=== PATIENT | male | born 1965 | race Caucasian/White ===

== ENCOUNTER 2017-09-03 03:23 | Inpatient (IN) | payer OTHER ==
[~2017-09-03] VITALS: Ht 182.9 cm; Wt 103.9 kg
[~2017-09-03 03:23] MED LIST: GLUCOPHAGE1000 M1 PO; LIPITOR20 M2 PO
--- NOTE | 2017-09-03 17:02 | Operative Report ---
Operative/Inv Procedure Report Surgery Date: 09/03/17 Name of Procedure: 1. Robotic low anterior resection with colon to low rectum anastomosis 2. Rigid sigmoidoscopy for the evaluation of anastomotic integrity Pre-Operative Diagnosis: Large adenoma of rectosigmoid not amenable to endoscopic removal Post-Operative Diagnosis: Large adenoma of upper to mid rectum Estimated Blood Loss: 50ml to 100ml Surgeon/Wellness Spa Manager: Jeremy Howe Jr., DO Anesthesia: general endotracheal tube, block Monitors: Per routine IV Fluids: 2,250 ml crystalloid Implants: None Urine Output: 250 mL Drains: Britt catheter Specimens: Rectosigmoid Complications: None Condition: Good Operative Indication: This is a 52-year-old gentleman who recently had a screening colonoscopy. He as found to have a large villous polyp described in the rectosigmoid. This was not amenable to endoscopic removal. Biopsies were performed which demonstrated adenoma and no evidence of invasive cancer. He was referred for surgical consultation and scheduled for low anterior resection Operative/Procedure Note Note: On the day before his operation the patient did a bowel prep at home including oral laxatives and oral antibiotics. On the morning of his procedure he drinks 12 ounces apple juice prior coming to the [facility]. In the holding area he was given ERAS premedications. He was taken to the operating room placed in supine position on the operating table . He was given IV antibiotics . He underwent induction of general anesthesia placement of endotracheal tube placement of Britt catheter . Next he was converted to lithotomy position and he was secured to the bed with both arms tucked . His abdomen was prepped and draped in usual fashion and then we gained access to the abdominal cavity using a Veress needle technique . The Veress needle was inserted in the midclavicular line subcostal on the left . The abdomen was insufflated to 15 mmHg . The robotic ports were placed on the line drawn between the xiphoid process in the right lower quadrant . #12 and 3 ports were 8 mm #4 port was a 12 mm . This placed the right lower quadrant 8 mm peer support . The number 3 port was placed blindly and all others were placed under direct visualization of the scope. The patient was placed in Trendelenburg right side down , the small bowel was swept out of the pelvis and the robot was docked. Began with medical to lateral dissection incising the peritoneum at the level of sacral promontory to the right of the rectum . I developed the avascular window here and continue to follow this laterally until I identified the important anatomic structures in the left retro-perineum including: The iliac vessels, the left ureter in the gonadal blood vessels. After dissecting the nasal colon off of the structures the pedicle of the inferior mesenteric artery was identified and then skeletonized. The vessel were then ligated and divided with a robotic 45 mm vascular stapler leaving the left colic and at least one tic of the sigmoid vessels. Next I took down the white line of Toldt's starting at the pelvic inlet and going retrograde back until I reached the proximal ascending colon. The splenic flexure was not taken down. I deserosalized a small part of the colon so this was oversewn with 2-0 Vicryl sutures in a Lembert fashion. This area of the silk was insufflation was probably less than 5 mm. Next I focused on the pelvic dissection. I followed the posterior avascular plane of the rectum down to the very low portion of the rectum. Of note the tattoo was below the peritoneal reflection and I could only see staining of the tattoo in the anterior portion of the rectum at the level of the peritoneal reflection. After mobilizing the mesorectum all the way down to the very low rectum I came around dividing the lateral pedicles first to the right side of the colon than the left side of the colon. I had to developed the anterior space between rectum and the general to urinary structures. Once I felt I was comfortably below the tattoo prepare for stapling. An anterior to posterior stapling was performed. Multiple firings of 45 mm green loaded stapler were required. Once the bowel was completely transected, cut and was grasped with a laparoscopic grasper and we letdown the pneumoperitoneum. A 4 cm Pfannenstiel incision was made in the suprapubic position. A wound protector was placed through this. The bowel was extracted through this incision. I chose my proximal site of transection. Cleared the mesentery here partly with electrocautery and ligating larger bundles of tissue with heavy Vicryl ties. The patient had a very large caliber colon. A large bowel clamp was placed across the bowel at the proposed site of transection. I then divided the bowel sharply and grasped the open ends with the Allis clamp. A handsewn pursestring was performed with 2-0 Prolene suture. It had to be reinforced with a second 2-0 Vicryl suture. A 31 EEA stapler was chosen for the anastomosis and the anvil of the stapler was placed into the lumen of the colon. The pursestring was tied snugly around the PEG of the anvil. The bowel was reduced back into the abdominal cavity. The abdominal wall at the Pfannenstiel incision was closed in 2 layers. The perineum was closed with interrupted 2-0 Vicryl suture in a figure of 8 fashion. The fascia was closed with running 0 non-looped Maxon. I then went to the back field open the specimen the polyp was within the specimen and had excellent distal margin. I changed and rescoped into the field. Placed the patient back in Trendelenburg irrigated out any residual blood and fluid in the pelvis. The rectal stump was then tested for air leaks. Sterile water was placed into the pelvis and a rigid sigmoidoscopy was done from below. There was no evidence of air leak. The EEA stapler was passed transanally and then the spike was advanced when the stapler was in the optimal position. When the PEG immersed to the wall of the rectum it was connected to the anvil. We then made sure the bowel was not twisted. The stapler was completely closed and allowed to settle for 30 seconds. The stapler was then armed and fired. The stapler was opened and retrieved. I had to intact very healthy stapler donuts on the stapling device. Once again the pelvis was filled with sterile saline and then the bowel was occluded proximal to the anastomosis. A rigid sigmoidoscopy was performed to easily pass the scope through the anastomosis and there was no leaking of air at the anastomosis. The fluid was aspirated out of the pelvis which one last look around the abdominal cavity. In the stasis appeared good. The ports removed under direct visualization of the laparoscope. The subcutaneous at the level of the Pfannenstiel incision was copiously irrigated with sterile saline. This incision was closed with skin lee. The other ports were closed with subcuticular 4-0 Monocryl and then skin glue. At this point the patient was converted back to supine position, he was exiting operating room, he tolerated the procedure well, and he was taken to the recovery in good condition At the end this operational needle sponges and measurements were accounted for. Findings: Very large villous lesion to mid rectum Colon to low rectal anastomosis Excellent margin on the lesion Discharge Disposition: Same Day Admissions CC: Chris HOUSE,Dulce
--- NOTE | 2017-09-03 17:05 | Admission Core Measures ---
Acute Coronary Syndrome (CM) ACS Core Measures Acute Coronary Syndrome Diagnosis No Congestive Heart Failure (NEW) CHF Core Measures Congestive Heart Failure Diagnosis No Cerebrovascular Accident (NEW) CVA Core Measures CVA/TIA Diagnosis No Venous Thromboembolism VTE Core Ebenezer (View Protocol) VTE Risk Factors Surgery No Mechanical VTE Prophylaxis d/t N/A MechProphylax Ordered No VTE Pharm Prophylaxis d/t NA PharmProphylax ordered Problem List As ranked by this Provider includes Assessment & Plan 1. Adenoma of rectum HOME MEDS Home Med List Atorvastatin Calcium (Lipitor) 20 MG TABLET 1 TAB PO DAILY CHOL (Reported) Metformin HCl (Glucophage) 1,000 MG TABLET 1 TAB PO BID DIABETES (Reported)
--- NOTE | 2017-09-03 17:09 | Surg Short-stay <48hrs Dis Sum ---
Visit Information Visit Dates Admission Date: 09/03/17 Discharge Date: 09/17/17 Surgical Short Stay DC Summary Admission Diagnosis: Large adenoma of upper to mid rectum Final Diagnosis: Same s/p robotic low anterior resection with colon to low rectum anastomosis and rigid sigmoidoscopy for the evaluation of anastomotic integrity Post-op anastomotic leak s/p exploratory laparotomy with washout of abdominal cavity, diverting loop ileostomy Procedure(s): Surgery Date: 09/03/17 Name of Procedure: 1. Robotic low anterior resection with colon to low rectum anastomosis 2. Rigid sigmoidoscopy for the evaluation of anastomotic integrity Surgery Date: 09/05/17 Name of Procedure: 1. Exploratory laparotomy with washout of abdominal cavity 2. Diverting loop ileostomy 3. Rigid sigmoidoscopy Summary/Significant Findings: Patient presented for an elective robotic low anterior resection with colon to low rectum anastomosis and rigid sigmoidoscopy on 09/03/[address] Howe for a large adenoma of the upper to mid rectum. ERAS protocol initiated preop and continued postop. On postop day 2, he developed worsening pain and signs of peritonitis and was taken back to the OR by Dr. Howe where he was found to have an anastomic leak. He underwent an exploratory laparotomy with washout of abdominal cavity, diverting loop ileostomy and rigid sigmoidoscopy. Drains were left in place and antibiotics were continued post-operatively. A wound vac was placed to the midline for wound contamination/closure with changes done three times a week (Wednesday/Wednesday/Wednesday). Diet was slowly advanced with return of bowel function. Imodium was started for diarrhea. Due to worsening leukocytosis, CT of the chest and abdomen/pelvis was obtained, which revealed atelectasis and a pleural effusion, and a u/s guided thoracentesis was done by IR. CT A/P revealed a justo-splenic collection for which he underwent an abdominal aspiration and IR percutanous drainage with final cultures that grew ecoli. He was started on IV antibiotics and transitioned to oral cipro and flagyl prior to discharge. VNA services were arranged for continued ileostomy care, LUCIANO drain care, and wound vac therapy with dressing changes three times a week. Condition at Discharge: Stable Discharge Disposition: home health services Discharge instructions provided to patient/family: Yes Post discharge follow-up plan: Follow up in [address] Howe Home health/vna care for drains, ileostomy care, and wound vac therapy M/W/F Copies to: James HOUSE,August Ramirez MD,August
[2017-09-03 19:06] VITALS: BP 148/74
--- NOTE | 2017-09-03 21:32 | PN- General Surgery ---
Subjective Subjective: POSTOP CHECK Patient tolerated his procedure well and was transferred to the general medical floor in stable condition. He admits to some discomfort, with minimal relief from Ultram and acetaminophen. Overall feeling very tired at the moment. Tolerating small sips of clears. No nausea or vomiting. No flatus as of yet. Avery catheter remains in place. Otherwise denies headache, dizziness, chest pain, shortness of breath. Objective Vital Signs and I&Os Vital Signs Date Time Temp Pulse Resp B/P B/P Pulse O2 O2 Flow FiO2 Mean Ox Delivery Rate 09/04 2023 Room Air 09/03 1912 96 Room Air Room Air 09/03 1905 97.6 80 18 148/74 99 Room Air Physical Exam: Gen.: Patient is awake and alert. No acute distress. Cardiac: Regular Pulmonary: Lungs are clear to auscultation bilaterally. Inspiratory effort somewhat limited by pain. Abdomen: Soft and moderately distended. The trocar incision sites are clean and intact with surgical glue in place. Dressing over the extraction site contains of small 2 cm area of bloody drainage, but it is not leaking. Mild justo- incisional tenderness, within expected limits. Hypoactive BS noted. Assessment/Plan Assessment/Plan Patient is a 52-year-old male, now POD #0 s/p Robotic low anterior resection with colon to low rectum anastomosis. Pt remains stable from a surgical standpoint. Plan: -ERAS pathway initiated. -Clear liquid diet tonight. If tolerated, will progress to fulls in AM. Recommend gum chewing. -Neurontin, tylenol, and ultram for pain. Pain is reasonably managed with this, but on occassion pain levels are somewhat high. Oxycodone 5 mg will be added q6 as needed. Pt is encouraged to limit use. -Entereg bid until return of bowel function. -DC avery early in AM. -Ambulate in AM, leg exercises, and incentive spirometer. -Heparin SC and alps for DVT ppx. -Ancef and Flagyl x 2 doses. -CBC and lytes in AM. Core Measures Venous Thromboembolism VTE Risk Factors Surgery No Mechanical VTE Prophylaxis d/t N/A MechProphylax Ordered No VTE Pharm Prophylaxis d/t NA PharmProphylax ordered
[2017-09-03 23:09] VITALS: BP 180/62
[2017-09-04 03:32] VITALS: BP 156/82
[2017-09-04 07:59] VITALS: BP 132/74
--- NOTE | 2017-09-04 08:28 | PN- Student ---
Jaxson Peres 09/04/17812: Subjective Subjective: PATIERRNT RECOVERING WELL POST-OP, ONE EPISODE OF EMESIS EARLY THIS AM, BUT HAS TOLERATED PO CLEARS SINCE THEN WITHOUT N/V. REPORTS PAIN MODERATELY CONTROLLED, REQUESTED OXYCODONE THIS AM FOR BREAKTHROUGH PAIN. PULIDO REMOVED THIS AM AND HAS VOIDED. HAS NOT BEEN OOB SINCE PROCEDURE. NO BM/FLATUS. PATIENT DENIES CHEST PAIN, SOB, HEADACHE, DIZZINESS, FEVER, AND CHILLS. Objective Objective: Vital Signs Date Time Temp Pulse Resp B/P B/P Pulse O2 O2 Flow FiO2 Mean Ox Delivery Rate 09/04 075 97.9 101 20 132/74 94 09/04 0332 99.3 102 20 156/82 93 09/03 2309 85 18 180/62 91 Room Air 09/04 2023 Room Air 09/03 191 96 Room Air Room Air 09/03 190 97.6 80 18 148/74 99 Room Air Intake & Output 09/04 1600 09/04 0800 09/04 0000 Intake Total 850 270 Output Total 2100 950 Balance -1250 -680 Intake, IV 850 150 Intake, Oral 120 Output, 100 Emesis Output, Urine 2000 950 Patient 230 lb Weight Weight Reported by Patient Measurement Method GENERAL: RESTING COMFORTABLY IN BED, NAD, ACTIVELY PARTICIPATED IN EXAM ABDOMEN: MODERATELY DISTENDED, INCISIONS AND DRESSINGS C/D/I WITHOUT SURROUNDING ERYTHEMA. NORMOACTIVE BOWEL SOUNDS THROUGHOUT ABDOMEN, MODERATE JOSE ARMANDO-INCISIONAL AND JOSE ARMANDO-UMBILICAL TENDERNESS, TYMPANIC IN ALL QUADRANTS CARDIAC: TACHYCARDIC, REGULAR RHYTHM, NO MRG PULM: CTAB, NO ACCESSORY MUSCLE USAGE LOWER EXTREMITIES: NO EDEMA OR ERYTHEMA, PNEUMATIC COMPRESSION DEVICES IN PLACE, NONTENDER, GROSS MOTOR AND SENSORY FUNCTION INTACT, 2+ DP PULSES B/L Results Results: Assessment/Plan Assessment: 52 Y/O MALE, PMH OF DM AND HLD, POD#1 S/P ROBOTIC LAR. PROGRESSING WELL POST-OP. PAIN MODERATELY CONTROLLED WITH OCCASIONAL BREAKTHROUGH PAIN REQUIRING OXYCODONE. AWAITING RETURN OF BOWEL FUNCTION, EPISODE OF EMESIS EARLY THIS A.M WITHOUT BM/FLATUS MAY REQUIRE SLOWER DIET PROGRESSION. SLIGHTLY HYPERTENSIVE AND TACHYCARDIC SINCE PROCEDURE LIKELY DUE TO PAIN. Plan: DIET: CLEARS CONTINUE CURRENT PAIN MANAGEMENT, OXYCODONE FOR BREAKTHROUGH PAIN PPX: SQH, PNEUMATIC COMPRESSION DEVICES, OOB OOB TOLERATED ENTEREG FOR RETURN OF BOWEL FUNCTION CONTINUE HOME MEDICATIONS F/U AM LABS PULIDO REMOVED, MONITOR URINE OUTPUT Misty Bryan 09/04/17 0907: Assessment/Plan Plan: Agree with student note above. Pt also seen by Dr. Hwoe. Continue clears due to nausea/vomiting this morning. Cont IVF for now. Will obtain gum for chewing later today.
--- NOTE | 2017-09-04 08:49 | PN- General Surgery ---
Surgical Brief Attending Note Brief Attending Note: Patient with borderline tachycardia this morning Abdominal exam is distended and tympanitic To not advance diet Continue IV fluids Follow-up a.m. labs
[2017-09-04 09:04] LABS: ABSOLUTE BASOPHIL COUNT 0 /CUMM (0.0-0.2); ABSOLUTE EOSINOPHIL COUNT 0 /CUMM (0.0-0.7); ABSOLUTE GRANULOCYTE CT 12.6 /CUMM (1.4-6.5); ABSOLUTE MONOCYTE COUNT 1.5 /CUMM (0.10-0.60); BASOPHIL % 0.1 % (0.0-2.0); EOSINOPHIL % 0 % (0-5); GRANULOCYTE % 83.4 % (42.2-75.2); HEMATOCRIT 39.4 % (42-52); MEAN CORPUSCULAR HGB 30.6 PG (27.0-31.0); MEAN CORPUSCULAR HGB CONC 33.5 G/DL (33.0-37.0); MEAN CORPUSCULAR VOLUME 91.3 FL (80.0-94.0); MEAN PLATELET VOLUME 9.7 FL (7.4-10.4); PLATELET COUNT 215 /CUMM (130-400); RBC DISTRIBUTION WIDTH 13.7 % (11.5-14.5); RED BLOOD CELL CT 4.32 /CUMM (4.70-6.10)
[2017-09-04 12:08] VITALS: BP 128/80
[2017-09-04 13:12] LABS: WHITE BLOOD CELL COUNT 15.1 /CUMM (4.8-10.8)
[2017-09-04 16:33] VITALS: BP 140/80
[2017-09-04 20:30] VITALS: BP 130/76
[2017-09-04 23:55] VITALS: BP 148/82
[2017-09-05 04:14] VITALS: BP 162/84
[2017-09-05 08:16] LABS: ABSOLUTE BASOPHIL COUNT 0 /CUMM (0.0-0.2); ABSOLUTE EOSINOPHIL COUNT 0 /CUMM (0.0-0.7); ABSOLUTE GRANULOCYTE CT 11.3 /CUMM (1.4-6.5); ABSOLUTE LYMPH COUNT 0.7 /CUMM (1.2-3.4); ABSOLUTE MONOCYTE COUNT 1.2 /CUMM (0.10-0.60); BASOPHIL % 0.1 % (0.0-2.0); EOSINOPHIL % 0 % (0-5); GRANULOCYTE % 85.9 % (42.2-75.2); HEMATOCRIT 43.2 % (42-52); MEAN CORPUSCULAR HGB 30.3 PG (27.0-31.0); MEAN CORPUSCULAR HGB CONC 32.7 G/DL (33.0-37.0); MEAN CORPUSCULAR VOLUME 92.7 FL (80.0-94.0); MEAN PLATELET VOLUME 9.9 FL (7.4-10.4); PLATELET COUNT 241 /CUMM (130-400); RBC DISTRIBUTION WIDTH 14.4 % (11.5-14.5); RED BLOOD CELL CT 4.66 /CUMM (4.70-6.10)
[2017-09-05 08:25] VITALS: BP 142/80
--- NOTE | 2017-09-05 08:44 | PN- General Surgery ---
Subjective Subjective: PT IN BED WITH C/O ABDOMINAL PAIN, SAYS IT FEELS LIKE A MUSCULAR PAIN. NO NAUSEA. PASSING SMALL AMOUNT OF FLATUS AND WATERY STOOL THIS MORNING. WAS AMBULATING YESTERDAY. TOLERATED CLEARS. VOIDING DENIES FEVER/CP/SOB/PEREZ Objective Vital Signs and I&Os Vital Signs Date Time Temp Pulse Resp B/P B/P Pulse O2 O2 Flow FiO2 Mean Ox Delivery Rate 09/05 824 98.8 94 20 142/80 95 Room Air 09/05 0414 99.0 102 20 162/84 92 09/04 2355 98.1 99 20 148/82 93 09/04 2030 98.2 86 18 130/76 91 Room Air 09/04 1633 98.0 78 18 140/80 95 Room Air 09/04 1208 97.2 78 20 128/80 95 Intake & Output 09/05 1600 09/05 0800 09/05 0000 09/04 1600 09/04 0809/04 0000 Intake Total 340 1050 1300 850 270 Output Total 445 961 6709 2100 950 Balance -535 450 -200 -1250 -680 Intake, IV 100 100 450 850 150 Intake, Oral 240 950 850 120 Number 1 0 Bowel Movements Output, 100 Emesis Output, Urine 326 458 8995 2000 950 Patient 230 lb Weight Weight Reported by Patient Measurement Method Physical Exam: GEN- APPEARS IN PAIN IN BED RESP- CLEAR CARDIAC-RRR ABD- DISTENDED, +BS, TENDER THROUGHOUT, NO REBOUND OR GAURDING. INCISIONS CLEAN AND DRY. NO SIGNS OF INFECTION EXT- NO EDEMA, NO CALF TENDERNESS Current Medications: Current Medications Sig/Milton Start time Last Medication Dose Route Stop Time Status Admin Acetaminophen 1,000 MG Q8H 09/03 0400 DC 09/05 IV 09/04 2000 06 Alvimopan 12 MG BID 09/03 2199 AC 09/05 PO 0739 Atorvastatin Calcium 20 MG 1700 09/04 1700 AC 09/04 PO 1713 Dextrose/Sodium 1,000 ML .[id number] 09/04 0915 DC Chloride IV Dextrose/Sodium 1,000 ML .[id number] 09/03 1915 DC 09/03 Chloride IV 1950 Gabapentin 300 MG Q8 09/03 1713 AC 09/05 PO 0505 Heparin Sodium 5,000 UNIT Q8 09/03 2200 AC 09/05 (Porcine) SC 0505 Insulin Aspart 0 TIDAC 09/04 0800 AC SC Metformin HCl 1,000 MG 0800,1700 09/04 0800 AC 09/05 PO 0739 Metronidazole 500 MG IQ8 09/04 0000 DC 09/04 N/A 1 UNIT IV 09/04 858 0812 Morphine Sulfate 2 MG ONCE ONE 09/05 0845 AC IV 09/05 0846 Ondansetron HCl 4 MG Q6P PRN 09/03 1915 AC 09/04 IV 0030 Oxycodone HCl 5 MG Q6P PRN 09/03 2145 AC 09/05 PO 0505 Tramadol HCl 50 MG Q6 PRN 09/03 1715 AC 09/05 PO 0739 Results Last 48 Hours of Labs: Laboratory Tests 09/05 09/04 0616 0621 Chemistry Sodium (137 - 145 mmol/L) 140 138 Potassium (3.5 - 5.1 mmol/L) 4.2 4.1 Chloride (98 - 107 mmol/L) 99 100 Carbon Dioxide (22 - 30 mmol/L) 23 26 Anion Gap (5 - 16) 17 H 12 BUN (9 - 20 mg/dL) 10 9 Creatinine (0.7 - 1.2 mg/dL) 0.9 0.9 Estimated GFR (>60 ml/min) > 60 > 60 BUN/Creatinine Ratio (7 - 25 %) 11.1 10.0 Magnesium (1.6 - 2.3 mg/dL) 1.9 Hematology CBC w Diff Pending MAN DIFF ORDERED WBC (4.8 - 10.8 /CUMM) Pending 15.1 H RBC (4.70 - 6.10 /CUMM) Pending 4.32 L Hgb (14.0 - 18.0 G/DL) Pending 13.2 L Hct (42 - 52 %) Pending 39.4 L MCV (80.0 - 94.0 FL) Pending 91.3 MCH (27.0 - 31.0 PG) Pending 30.6 MCHC (33.0 - 37.0 G/DL) Pending 33.5 RDW (11.5 - 14.5 %) Pending 13.7 Plt Count (130 - 400 /CUMM) Pending 215 MPV (7.4 - 10.4 FL) Pending 9.7 Gran % (42.2 - 75.2 %) 83.4 H Lymphocytes % (20.5 - 51.1 %) 6.7 L Monocytes % (1.7 - 9.3 %) 9.8 H Eosinophils % (0 - 5 %) 0 Basophils % (0.0 - 2.0 %) 0.1 Absolute Granulocytes (1.4 - 6.5 /CUMM) 12.6 H Segmented Neutrophils (42.2 - 75.2 %) 78 H Band Neutrophils (0.0 - 5.0 %) 9 H Absolute Lymphocytes (1.2 - 3.4 /CUMM) 1.0 L Lymphocytes (20.5 - 51.1 %) 1 L Monocytes (1.7 - 9.3 %) 9 Absolute Monocytes (0.10 - 0.60 /CUMM) 1.5 H Eosinophils (0 - 5.0 %) 1 Absolute Eosinophils (0.0 - 0.7 /CUMM) 0 Absolute Basophils (0.0 - 0.2 /CUMM) 0 Metamyelocytes (0.0 - 1.0 %) 2 H Normocytic RBCs VERIFIED Normochromic RBCs VERIFIED Assessment/Plan Assessment/Plan 52YO M POD2 s/p Robotic low anterior resection with colon to low rectum anastomosis. NO WITH BREAKTHROUGH ABDOMINAL PAIN AND A DISTENDED ABDOMEN -IV MORPHINE 2MG ONCE NOW -ERAS PROTOCOL -CONTINUE Clear liquid diet FOR NOW. Recommend gum chewing. -Neurontin, tylenol, and ultram for pain. Pt is encouraged to limit use. -Entereg bid until return of bowel function. -Encourage Ambulation and incentive spirometer. -Heparin SC and alps for DVT ppx. -Will discuss with Dr Howe Core Measures Venous Thromboembolism VTE Risk Factors Surgery No Mechanical VTE Prophylaxis d/t N/A MechProphylax Ordered No VTE Pharm Prophylaxis d/t NA PharmProphylax ordered
[2017-09-05 09:14] LABS: WHITE BLOOD CELL COUNT 13.2 /CUMM (4.8-10.8)
--- NOTE | 2017-09-05 10:00 | PN- General Surgery ---
Surgical Brief Attending Note Brief Attending Note: Patient examined. Clinical data reviewed. Patient discussed with PA Abdomen is very distended and tympanitic Patient denies nausea but is very uncomfortable Patient appears to developed ileus despite ERAS Plan: Make patient nothing by mouth restart IV fluids Obtain abdominal x-ray this morning Start IV pain medicines If patient is nauseous place NG tube
[2017-09-05 11:41] VITALS: BP 132/78
[2017-09-05 14:49] VITALS: BP 130/72
--- NOTE | 2017-09-05 15:44 | RADIOLOGY REPORT ---
EXAMINATION: XR ABDOMEN MULTIPLE VIEWS CLINICAL INDICATION: Postoperative ileus COMPARISON: None TECHNIQUE: 2 views of the abdomen. FINDINGS: Dilated the small and large bowel loops compatible with the clinical suspicion of postoperative ileus. There are surgical sutures across midline in the lower pelvis. The diaphragms were not included in this study. Skeletal structures are normal. IMPRESSION: Dilated bowel loops compatible with the clinical suspicion of postoperative ileus.
--- NOTE | 2017-09-05 16:31 | Event Note ---
Event Note Event Note: PT WITH PERSISTANT ABDOMINAL PAIN THROUGHOUT THE DAY WITH INCREASED DISTENTION. KUB SHOWED POST-OP ILEUS PT IS TACHYCARDIC AT 112, AFEBRILE ON EXAM HE IS PERITONEAL WITH REBOUND TENDERNESS NOTIFIED DR MEJIA WHO SAID HE WAS ON HIS WAY IN TO THE HOSPITAL. ON DR. MEJIA'S ARRIVAL, HE REC PLACING AN NGT TO SEE IF SYMPTOMS IMPROVED. NGT WAS PLACED AND ONLY ABOUT 20CC OF FLUID CAME OUT. AT THAT TIME, DR MEJIA DECIDED THAT THERE IS LIKELY MORE GOING ON THAN JUST AN ILEUS AND REC TAKING HIM BACK TO THE OR FOR AN EXPLORATORY LAPAROTOMY. STAT LABS WERE ORDERED
[2017-09-05 16:42] LABS: ABSOLUTE BASOPHIL COUNT 0 /CUMM (0.0-0.2); ABSOLUTE EOSINOPHIL COUNT 0 /CUMM (0.0-0.7); ABSOLUTE GRANULOCYTE CT 9.8 /CUMM (1.4-6.5); ABSOLUTE LYMPH COUNT 0.3 /CUMM (1.2-3.4); ABSOLUTE MONOCYTE COUNT 0.4 /CUMM (0.10-0.60); BASOPHIL % 0 % (0.0-2.0); EOSINOPHIL % 0 % (0-5); GRANULOCYTE % 93.5 % (42.2-75.2); HEMATOCRIT 42.7 % (42-52); MEAN CORPUSCULAR HGB 30.2 PG (27.0-31.0); MEAN CORPUSCULAR VOLUME 91.5 FL (80.0-94.0); MEAN PLATELET VOLUME 8.6 FL (7.4-10.4); PLATELET COUNT 222 /CUMM (130-400); RBC DISTRIBUTION WIDTH 13.8 % (11.5-14.5); RED BLOOD CELL CT 4.66 /CUMM (4.70-6.10); WHITE BLOOD CELL COUNT 10.4 /CUMM (4.8-10.8)
[2017-09-05 17:17] VITALS: BP 118/84
--- NOTE | 2017-09-05 20:06 | Operative Report ---
Operative/Inv Procedure Report Surgery Date: 09/05/17 Name of Procedure: 1. Exploratory laparotomy with washout of abdominal cavity 2. Diverting loop ileostomy 3. Rigid sigmoidoscopy Pre-Operative Diagnosis: Worsening abdominal exam postop day #2 following major abdominal / bowel surgery Post-Operative Diagnosis: Anastomotic leak Estimated Blood Loss: less than 50ml Surgeon/Casino Floor Runner: Jeremy Howe Jr., DO Anesthesia: general endotracheal tube, block Monitors: Per routine Implants: None Drains: 1. Right lower quadrant LUCIANO drain in the posterior pelvis 2. Left lower quadrant LUCIANO drain and anterior pelvis Specimens: None Complications: none Condition: Good Operative Indication: This 52-year-old gentleman who 2 days earlier had a robotic low anterior resection with colo low rectal anastomosis. On postoperative day #1 he had more abdominal distention that is typical but otherwise appeared well. He was kept on all clear liquid On postoperative day #2 he had increasing abdominal pain, worsening abdominal distention, increasing tenderness and now was becoming tachycardic. IV resuscitation sedation was initiated and nasogastric tube was placed. The patient was taken urgently to the operating room for expiratory laparotomy Operative/Procedure Note Note: Patient was taken into the operating room placed in supine position on the operating room table. He underwent induction of general anesthesia placement of endotracheal tube and Britt catheter. He underwent bilateral tap blocks performed by the anesthesia department. He was then converted to lithotomy position in [facility]. The abdomen was prepped and draped in usual fashion. Because of this severe abdominal distention I elected to go right to open laparotomy instead of diagnostic laparoscopy. A generous midline incision was made and taken down to the fascia. The fascia was carefully divided in the midline. The perineum was then grasped and sharply incised. At this point there was obvious free air in the abdomen. The left colon was carefully inspected appeared well vascularized and uninjured, as was the transverse colon and cecum. The entire length of the small bowel was run and the small bowel was completely uninjured. As we are running the small bowel we started to see some very watery brown tinged fluid coming up from the pelvis. As we carefully retracted the tissues and entered the space was a large amount of liquidy feculent fluid. This was copiously irrigated and aspirated away. At this point my impression was that he had a anastomotic leak the posterior part of the anastomosis. I went below and did rigid sigmoidoscopy evacuated any residual stool in the colon and rectum. The mucosa both cephalad and caudad to the anastomosis was pink and well vascularized. So there was no evidence of bowel ischemia. As I insufflated the bowel PA reported bubbling from the posterior part of the anastomosis. With further evaluation there appeared to be a small dehiscence in the posterior portion of the anastomosis which was significantly less than 25% of the circumference. At this point I decided to leave this anastomosis intact as this was a low pelvic anastomosis. I scrubbed back ten- week continued to copiously wash out the abdominal cavity. LUCIANO drains were then placed. The right lower quadrant drain was placed through the previous port site and pushed deep into the posterior pelvis. This was then secured to the skin with a 2-0 nylon. A left lower quadrant drain was placed through a stab incision and this LUCIANO drain was applied across the anterior portion of the anastomosis. At this point I chose an appropriate loop of ileum for diversion. A right lower quadrant circular incision was performed and taken down to the fascia. The fascia was divided in a cruciate fashion over the rectus muscle. Rectus muscle was bluntly's plate in the direction of the fibers. The posterior fascia was divided also in a cruciate fashion. The loop of terminal ileum was brought up through the fascia. Next the midline fascia was closed with running 0 looped PDS suture. The midline incision was then approximated to points around the umbilicus with 2-0 nylon suture in a mattress fashion. Midline incision was covered. A small window was made in the mesentery of the small bowel. A red rubber catheter was pulled through this window. A double barrel type ileostomy was then created using interrupted 3-0 Vicryl suture. Details of the red rubber catheter were then sutured together to create a stoma bridge. The abdomen was cleansed and dried. A stomal collection devices placed over the ileostomy. A Kerlix soaked with dilute Betadine was placed as packing in the midline incision. A sterile bulky dressing was placed over this. At this point the procedure was concluded. The patient tolerated the procedure well. His blood pressure remained stable and his tachycardia improved over the course of the operation. Patient was next abated in the operating room and taken recovery area in good condition. At the end of this operational needle sponges and measurements were accounted for. Findings: Posterior midline anastomotic leak less than 25% of the circumference of the anastomosis Discharge Disposition: PACU
[2017-09-05 21:44] VITALS: BP 122/84
[2017-09-06 00:02] VITALS: BP 120/80
[2017-09-06 04:12] VITALS: BP 124/82
--- NOTE | 2017-09-06 07:33 | PN- General Surgery ---
See Addendum Subjective Subjective: feeling ok, some abdominal pain, bloated- not taking pain meds. no n/v. no ostomy output. no oob. very thirsty, asking for drinks. ngt in place. Objective Vital Signs and I&Os Vital Signs Date Time Temp Pulse Resp B/P B/P Pulse O2 O2 Flow FiO2 Mean Ox Delivery Rate 09/06 0412 98.3 112 20 124/82 90 09/06 0002 98.3 108 20 120/80 92 09/05 2144 98.5 100 18 122/84 92 Room Air 09/05 1717 98.3 128 18 118/84 93 Room Air 09/05 1449 98.1 112 24 130/72 94 Room Air 09/05 1141 98.1 94 18 132/78 95 Room Air 09/05 0825 98.8 94 20 142/80 95 Room Air Intake & Output 09/06 0800 09/06 0000 08 1600 09/05 0800 09/05 0000 09/04 1600 Intake Total 125 6335 609 5294 1300 Output Total 575 310 550 606 167 0031 Balance -575 -185 700 -535 450 -200 Intake, IV 125 1250 100 100 450 Intake, Oral 0 0 240 950 850 Number 0 1 0 Bowel Movements Output, 40 30 Drainage Output, 250 30 Gastric Drainage Output, Stool 10 Output, Urine 275 250 550 681 051 6048 Physical Exam: gen- nad, card- s1s2 regular, tachy pulm- ctab abd- large dressing cdi, jpx2 to self suction (recently emptied), ttp throughout , largely distended, tympanic, stoma pink and edematous- minimal serous output in bag- no gas or stool. ngt in place- dark bilious output in canister ext- calves soft nt bl, alps on uro- avery in place, concentrated urine in tubing (recently emptied) Results Last 48 Hours of Labs: Laboratory Tests 09/05 09/05 1631 0616 Chemistry Sodium (137 - 145 mmol/L) 138 140 Potassium (3.5 - 5.1 mmol/L) 4.1 4.2 Chloride (98 - 107 mmol/L) 102 99 Carbon Dioxide (22 - 30 mmol/L) 23 23 Anion Gap (5 - 16) 14 17 H BUN (9 - 20 mg/dL) 13 10 Creatinine (0.7 - 1.2 mg/dL) 0.9 0.9 Estimated GFR (>60 ml/min) > 60 > 60 BUN/Creatinine Ratio (7 - 25 %) 14.4 11.1 Magnesium (1.6 - 2.3 mg/dL) 1.9 Hematology CBC w Diff NO MAN DIFF REQ NO MAN DIFF REQ WBC (4.8 - 10.8 /CUMM) 10.4 13.2 H RBC (4.70 - 6.10 /CUMM) 4.66 L 4.66 L Hgb (14.0 - 18.0 G/DL) 14.1 14.1 Hct (42 - 52 %) 42.7 43.2 MCV (80.0 - 94.0 FL) 91.5 92.7 MCH (27.0 - 31.0 PG) 30.2 30.3 MCHC (33.0 - 37.0 G/DL) 33.0 32.7 L RDW (11.5 - 14.5 %) 13.8 14.4 Plt Count (130 - 400 /CUMM) 222 241 MPV (7.4 - 10.4 FL) 8.6 9.9 Gran % (42.2 - 75.2 %) 93.5 H 85.9 H Lymphocytes % (20.5 - 51.1 %) 2.8 L 5.2 L Monocytes % (1.7 - 9.3 %) 3.7 8.8 Eosinophils % (0 - 5 %) 0 0 Basophils % (0.0 - 2.0 %) 0 0.1 Absolute Granulocytes (1.4 - 6.5 /CUMM) 9.8 H 11.3 H Absolute Lymphocytes (1.2 - 3.4 /CUMM) 0.3 L 0.7 L Absolute Monocytes (0.10 - 0.60 /CUMM) 0.4 1.2 H Absolute Eosinophils (0.0 - 0.7 /CUMM) 0 0 Absolute Basophils (0.0 - 0.2 /CUMM) 0 0 Assessment/Plan Assessment/Plan A- POD1 sp ex lap/dli for anastamotic perforation/fecal peritonitis, POD3 sp robotic LAR for large polyp, currently tachy likely due to pain/anxiety, with no ostomy function, with borderline concentrated urine output, otherwise stable. P- prn pain meds-encouraged to take meds if needed keep avery in place, strict I&Os cont ivf ngt to lcws, npo cont rocephin/flagyl riss for npo oob, ambulate titrate off o2 keep jpx2 in place, self suction alps, hepsq Core Measures Venous Thromboembolism VTE Risk Factors Surgery No Mechanical VTE Prophylaxis d/t N/A MechProphylax Ordered No VTE Pharm Prophylaxis d/t NA PharmProphylax ordered
[2017-09-06 08:33] VITALS: BP 140/80
[2017-09-06 09:21] LABS: ABSOLUTE BASOPHIL COUNT 0 /CUMM (0.0-0.2); ABSOLUTE EOSINOPHIL COUNT 0 /CUMM (0.0-0.7); ABSOLUTE GRANULOCYTE CT 9.5 /CUMM (1.4-6.5); ABSOLUTE LYMPH COUNT 0.4 /CUMM (1.2-3.4); ABSOLUTE MONOCYTE COUNT 0.4 /CUMM (0.10-0.60); BASOPHIL % 0 % (0.0-2.0); EOSINOPHIL % 0 % (0-5); HEMATOCRIT 40.7 % (42-52); MEAN CORPUSCULAR HGB CONC 32.7 G/DL (33.0-37.0); MEAN CORPUSCULAR VOLUME 91.8 FL (80.0-94.0); MEAN PLATELET VOLUME 9.2 FL (7.4-10.4); RBC DISTRIBUTION WIDTH 14.1 % (11.5-14.5); RED BLOOD CELL CT 4.43 /CUMM (4.70-6.10); WHITE BLOOD CELL COUNT 10.3 /CUMM (4.8-10.8)
[2017-09-06 09:37] LABS: GRANULOCYTE % 92.3 % (42.2-75.2); PLATELET COUNT 188 /CUMM (130-400)
[2017-09-06 12:00] VITALS: BP 136/78
[2017-09-06 16:09] VITALS: BP 144/80
[2017-09-06 20:00] VITALS: BP 130/77
[2017-09-07] VITALS (7 sets, daily range): BP systolic 122–176; BP diastolic 78–92
--- NOTE | 2017-09-07 07:16 | PN- General Surgery ---
See Addendum Subjective Subjective: POD#4 s/p robotic LAR POD#2 diverting loop ileostomy/LUCIANO x2 for anastamotic dihiscence. Resting in bed. at bedside. NGT remains to wall suction, dark bilious drainage noted. Complains of abdominal pain. Reports no gas in bag yet. Objective Vital Signs and I&Os Vital Signs Date Time Temp Pulse Resp B/P B/P Pulse O2 O2 Flow FiO2 Mean Ox Delivery Rate 09/07 08 98.2 110 18 132/78 92 Nasal 1.5L Cannula 09/07 0400 98.3 119 18 140/86 90 09/07 0000 98.5 113 18 138/78 90 09/06 2000 98.3 115 18 130/77 92 Nasal 1.5L Cannula 09/06 1609 98.1 114 18 144/80 92 Nasal 1.5L Cannula 09/06 1200 98.2 118 20 136/78 92 Nasal Cannula Intake & Output 09/07 1600 09/07 0800 09/07 0000 09/06 1600 09/06 0800 09/06 0000 Intake Total 1000 1010 125 Output Total 350 1120 700 681 575 310 Balance -350 -120 -700 329 -575 -185 Intake, IV 1000 1000 125 Intake, Oral 0 10 0 Output, 70 31 40 30 Drainage Output, 700 350 350 250 30 Gastric Drainage Output, Stool 10 Output, Urine 350 350 350 300 275 250 Patient 229 lb Weight Physical Exam: Gen: AAOx3 in NAD Cor: S1+S2+ Tachycardic. Lungs: CTA charla Abd: softly distended, tympanitic, JPs with serous drainage, holding suction. Stoma beefy red. No gas in bag/stool in bag. Ext: no edema or calf tenderness to charla lower extremities. Palpable DP pulses bl. Current Medications: Current Medications Sig/Milton Start time Last Medication Dose Route Stop Time Status Admin Acetaminophen 1,000 MG Q6H 09/06 0100 DC 09/06 N/A 1 UNIT IV 09/06 1914 1925 Ceftriaxone Sodium 2,000 MG DAILY@2100 09/05 2100 AC 09/06 IV 2026 Dextrose/Sodium 1,000 ML Q8H 09/07 0730 AC 09/07 Chloride IV 0721 Dextrose/Sodium 1,000 ML Q8H 09/05 1015 DC 09/07 Chloride IV 0028 Heparin Sodium 5,000 UNIT Q8 09/03 2200 AC 09/07 (Porcine) SC 0526 Insulin Human Regular 4 UNITS .STK-MED ONE 09/07 0014 DC IV 09/07 0015 Insulin Human Regular 4 UNITS .STK-MED ONE 09/06 1930 DC IV 09/06 1931 Insulin Human Regular 4 UNITS .STK-MED ONE 09/06 1258 DC IV 09/06 1259 Insulin Human Regular 0 Q6 09/05 1200 AC 09/07 SC 0541 Lorazepam 0.5 MG Q4P PRN 09/05 1045 AC 09/05 IV 1449 Metronidazole 500 MG IQ8 09/06 0000 AC 09/07 N/A 1 UNIT IV 0021 Morphine Sulfate 4 MG Q3P PRN 09/06 0815 AC 09/07 IV 0541 Morphine Sulfate 2 MG Q3P PRN 09/06 0815 AC IV Ondansetron HCl 4 MG Q6P PRN 09/03 1915 AC 09/04 IV 0030 Patient Medication 1 ED ONE ONE 09/06 1500 DC 09/06 Teaching ED 09/06 1501 1613 Results Last 48 Hours of Labs: Laboratory Tests 09/07 09/06 0610 0908 Chemistry Sodium (137 - 145 mmol/L) 146 H 140 Potassium (3.5 - 5.1 mmol/L) 3.8 4.1 Chloride (98 - 107 mmol/L) 105 105 Carbon Dioxide (22 - 30 mmol/L) 29 25 Anion Gap (5 - 16) 13 11 BUN (9 - 20 mg/dL) 18 18 Creatinine (0.7 - 1.2 mg/dL) 0.8 1.0 Estimated GFR (>60 ml/min) > 60 > 60 BUN/Creatinine Ratio (7 - 25 %) 22.5 18.0 Phosphorus (2.5 - 4.5 mg/dL) 1.9 L Magnesium (1.6 - 2.3 mg/dL) 2.3 Hematology CBC w Diff MAN DIFF ORDERED NO MAN DIFF REQ WBC (4.8 - 10.8 /CUMM) Pending 10.3 RBC (4.70 - 6.10 /CUMM) Pending 4.43 L Hgb (14.0 - 18.0 G/DL) Pending 13.3 L Hct (42 - 52 %) Pending 40.7 L MCV (80.0 - 94.0 FL) Pending 91.8 MCH (27.0 - 31.0 PG) Pending 30.0 MCHC (33.0 - 37.0 G/DL) Pending 32.7 L RDW (11.5 - 14.5 %) Pending 14.1 Plt Count (130 - 400 /CUMM) Pending 188 MPV (7.4 - 10.4 FL) Pending 9.2 Gran % (42.2 - 75.2 %) Pending 92.3 H Lymphocytes % (20.5 - 51.1 %) Pending 3.6 L Monocytes % (1.7 - 9.3 %) Pending 4.1 Eosinophils % (0 - 5 %) Pending 0 Basophils % (0.0 - 2.0 %) Pending 0 Absolute Granulocytes (1.4 - 6.5 /CUMM) Pending 9.5 H Segmented Neutrophils (42.2 - 75.2 %) Pending Absolute Lymphocytes (1.2 - 3.4 /CUMM) Pending 0.4 L Absolute Monocytes (0.10 - 0.60 /CUMM) Pending 0.4 Absolute Eosinophils (0.0 - 0.7 /CUMM) Pending 0 Absolute Basophils (0.0 - 0.2 /CUMM) Pending 0 08 1631 Chemistry Sodium (137 - 145 mmol/L) 138 Potassium (3.5 - 5.1 mmol/L) 4.1 Chloride (98 - 107 mmol/L) 102 Carbon Dioxide (22 - 30 mmol/L) 23 Anion Gap (5 - 16) 14 BUN (9 - 20 mg/dL) 13 Creatinine (0.7 - 1.2 mg/dL) 0.9 Estimated GFR (>60 ml/min) > 60 BUN/Creatinine Ratio (7 - 25 %) 14.4 Hematology CBC w Diff NO MAN DIFF REQ WBC (4.8 - 10.8 /CUMM) 10.4 RBC (4.70 - 6.10 /CUMM) 4.66 L Hgb (14.0 - 18.0 G/DL) 14.1 Hct (42 - 52 %) 42.7 MCV (80.0 - 94.0 FL) 91.5 MCH (27.0 - 31.0 PG) 30.2 MCHC (33.0 - 37.0 G/DL) 33.0 RDW (11.5 - 14.5 %) 13.8 Plt Count (130 - 400 /CUMM) 222 MPV (7.4 - 10.4 FL) 8.6 Gran % (42.2 - 75.2 %) 93.5 H Lymphocytes % (20.5 - 51.1 %) 2.8 L Monocytes % (1.7 - 9.3 %) 3.7 Eosinophils % (0 - 5 %) 0 Basophils % (0.0 - 2.0 %) 0 Absolute Granulocytes (1.4 - 6.5 /CUMM) 9.8 H Absolute Lymphocytes (1.2 - 3.4 /CUMM) 0.3 L Absolute Monocytes (0.10 - 0.60 /CUMM) 0.4 Absolute Eosinophils (0.0 - 0.7 /CUMM) 0 Absolute Basophils (0.0 - 0.2 /CUMM) 0 Assessment/Plan Assessment/Plan A: POD #4 s/p robotic LAR POD #2 s/p loop ileostomy for anastamotic dihiscence; tachycardic. Remains on CTX/Flagyl. Plan: Await return of bowel function. Continue NGT to CLWS. Keep JPs in place. OOB and ambulate. Encouraged use of incentive spirometer. F/U am labwork. Monitor lytes. HSQ for DVT ppx. Core Measures Venous Thromboembolism VTE Risk Factors Surgery (A) No Mechanical VTE Prophylaxis d/t N/A MechProphylax Ordered No VTE Pharm Prophylaxis d/t NA PharmProphylax ordered
[2017-09-07 07:51] LABS: ABSOLUTE BASOPHIL COUNT 0 /CUMM (0.0-0.2); ABSOLUTE EOSINOPHIL COUNT 0 /CUMM (0.0-0.7); ABSOLUTE GRANULOCYTE CT 11.6 /CUMM (1.4-6.5); ABSOLUTE LYMPH COUNT 0.4 /CUMM (1.2-3.4); ABSOLUTE MONOCYTE COUNT 0.4 /CUMM (0.10-0.60); BASOPHIL % 0 % (0.0-2.0); EOSINOPHIL % 0.1 % (0-5); GRANULOCYTE % 93.9 % (42.2-75.2); HEMATOCRIT 37.2 % (42-52); MEAN CORPUSCULAR HGB 30.6 PG (27.0-31.0); MEAN CORPUSCULAR HGB CONC 33.2 G/DL (33.0-37.0); MEAN CORPUSCULAR VOLUME 92.2 FL (80.0-94.0); MEAN PLATELET VOLUME 10.2 FL (7.4-10.4); PLATELET COUNT 208 /CUMM (130-400); RBC DISTRIBUTION WIDTH 14.5 % (11.5-14.5); RED BLOOD CELL CT 4.04 /CUMM (4.70-6.10); WHITE BLOOD CELL COUNT 12.3 /CUMM (4.8-10.8)
--- NOTE | 2017-09-07 14:01 | Procedure ---
Minor Surgical Procedure Note Date of Procedure: 09/07/17 Procedure Note: Midline abdominal dressing changed at bedside. Initial dressing with serosanginous saturation. Gauze lucien removed and replaced with wet gauze. Topped with moist gauzed and an abd pad and then silk tape. Wound bed with healthy appearing fat/granulation tissue. Patient tolerated the procedure well. Next dsg change by the Surgery team tomorrow.
[2017-09-08 03:45] VITALS: BP 156/86
--- NOTE | 2017-09-08 07:23 | PN- General Surgery ---
See Addendum Subjective Subjective: feeling better, stoma starting to function. wants ngt out. +voids. +oob. deneis cp/sob but stillr requiring supp o2 Objective Vital Signs and I&Os Vital Signs Date Time Temp Pulse Resp B/P B/P Pulse O2 O2 Flow FiO2 Mean Ox Delivery Rate 09/08 820 98.8 98 20 122/82 93 Nasal 1.5L Cannula 09/08 0345 98.9 100 20 156/86 93 Nasal 1.5L Cannula 09/08 0000 94 Nasal 1.5L Cannula 09/07 2337 98.9 100 20 176/92 94 Nasal 1.5L Cannula 09/07 2100 98.3 107 18 130/84 93 Nasal 1.5L Cannula 09/07 1600 Nasal 1.5L Cannula 09/07 1600 98.6 114 19 160/84 91 Nasal 1.5L Cannula 09/07 1319 20 93 Room Air 09/07 1318 22 93 Room Air 09/07 1317 22 94 Nasal 1.5L Cannula 09/07 1201 98.7 102 20 122/78 93 Nasal 1.5L Cannula Intake & Output 09/08 1600 09/08 0800 09/08 0000 09/07 1600 09/07 0800 09/07 0000 Intake Total 5829 389 3268 1000 Output Total 175 134 734 5067 1120 700 Balance -175 330 10 -70 -120 -700 Intake, IV 0948 406 8402 1000 Intake, Oral 0 0 0 0 Intake, Other 0 Output, 20 15 20 70 Drainage Output, 200 100 300 700 350 Gastric Drainage Output, Stool 175 50 50 0 Output, Urine 400 700 750 350 350 Physical Exam: gen- nad card- s1s2 rrr pulm- ctab abd- large dressing in place- serosang staining. stoma pink, viable, edematous, lado in place. liquid bronw stool in abg, approx 200cc. ttp. ngt w dark bilious output ext- calves soft nt bl Results Last 48 Hours of Labs: Laboratory Tests 09/08 09/07 0637 0610 Chemistry Sodium (137 - 145 mmol/L) Pending 146 H Potassium (3.5 - 5.1 mmol/L) Pending 3.8 Chloride (98 - 107 mmol/L) Pending 105 Carbon Dioxide (22 - 30 mmol/L) Pending 29 Anion Gap (5 - 16) Pending 13 BUN (9 - 20 mg/dL) Pending 18 Creatinine (0.7 - 1.2 mg/dL) Pending 0.8 Estimated GFR (>60 ml/min) > 60 BUN/Creatinine Ratio (7 - 25 %) Pending 22.5 Phosphorus (2.5 - 4.5 mg/dL) 1.9 L Magnesium (1.6 - 2.3 mg/dL) 2.3 Hematology CBC w Diff Pending MAN DIFF ORDERED WBC (4.8 - 10.8 /CUMM) Pending 12.3 H RBC (4.70 - 6.10 /CUMM) Pending 4.04 L Hgb (14.0 - 18.0 G/DL) Pending 12.4 L Hct (42 - 52 %) Pending 37.2 L MCV (80.0 - 94.0 FL) Pending 92.2 MCH (27.0 - 31.0 PG) Pending 30.6 MCHC (33.0 - 37.0 G/DL) Pending 33.2 RDW (11.5 - 14.5 %) Pending 14.5 Plt Count (130 - 400 /CUMM) Pending 208 MPV (7.4 - 10.4 FL) Pending 10.2 Gran % (42.2 - 75.2 %) 93.9 H Lymphocytes % (20.5 - 51.1 %) 3.0 L Monocytes % (1.7 - 9.3 %) 3.0 Eosinophils % (0 - 5 %) 0.1 Basophils % (0.0 - 2.0 %) 0 Absolute Granulocytes (1.4 - 6.5 /CUMM) 11.6 H Segmented Neutrophils (42.2 - 75.2 %) 70 Band Neutrophils (0.0 - 5.0 %) 18 H Absolute Lymphocytes (1.2 - 3.4 /CUMM) 0.4 L Lymphocytes (20.5 - 51.1 %) 6 L Monocytes (1.7 - 9.3 %) 4 Absolute Monocytes (0.10 - 0.60 /CUMM) 0.4 Absolute Eosinophils (0.0 - 0.7 /CUMM) 0 Absolute Basophils (0.0 - 0.2 /CUMM) 0 Metamyelocytes (0.0 - 1.0 %) 1 Myelocytes (0 - 0 %) 1 H Platelet Estimate (ADEQUATE) ADEQUATE Normocytic RBCs VERIFIED Normochromic RBCs VERIFIED 09/06 0908 Chemistry Sodium (137 - 145 mmol/L) 140 Potassium (3.5 - 5.1 mmol/L) 4.1 Chloride (98 - 107 mmol/L) 105 Carbon Dioxide (22 - 30 mmol/L) 25 Anion Gap (5 - 16) 11 BUN (9 - 20 mg/dL) 18 Creatinine (0.7 - 1.2 mg/dL) 1.0 Estimated GFR (>60 ml/min) > 60 BUN/Creatinine Ratio (7 - 25 %) 18.0 Hematology CBC w Diff NO MAN DIFF REQ WBC (4.8 - 10.8 /CUMM) 10.3 RBC (4.70 - 6.10 /CUMM) 4.43 L Hgb (14.0 - 18.0 G/DL) 13.3 L Hct (42 - 52 %) 40.7 L MCV (80.0 - 94.0 FL) 91.8 MCH (27.0 - 31.0 PG) 30.0 MCHC (33.0 - 37.0 G/DL) 32.7 L RDW (11.5 - 14.5 %) 14.1 Plt Count (130 - 400 /CUMM) 188 MPV (7.4 - 10.4 FL) 9.2 Gran % (42.2 - 75.2 %) 92.3 H Lymphocytes % (20.5 - 51.1 %) 3.6 L Monocytes % (1.7 - 9.3 %) 4.1 Eosinophils % (0 - 5 %) 0 Basophils % (0.0 - 2.0 %) 0 Absolute Granulocytes (1.4 - 6.5 /CUMM) 9.5 H Absolute Lymphocytes (1.2 - 3.4 /CUMM) 0.4 L Absolute Monocytes (0.10 - 0.60 /CUMM) 0.4 Absolute Eosinophils (0.0 - 0.7 /CUMM) 0 Absolute Basophils (0.0 - 0.2 /CUMM) 0 Assessment/Plan Assessment/Plan A- improving- bowel function returning, stoma viable. Still requiring supplemental o2 though no cp/sob. stable. P- DC NGT start clears slowly CXR, titrate o2, oob, IST labs pending oob strict I&Os cont katie/flag dw Dr. Howe Core Measures Venous Thromboembolism VTE Risk Factors Surgery (A) No Mechanical VTE Prophylaxis d/t N/A MechProphylax Ordered No VTE Pharm Prophylaxis d/t NA PharmProphylax ordered
--- NOTE | 2017-09-08 08:05 | PN- General Surgery ---
Surgical Brief Attending Note Brief Attending Note: Pt is progressing Stoma now starting to funtion - NGT is out , start clear O2 sats on low side - obtain CXR LUCIANO drains serosang Decrease IVF to 75 ml / hr Continue DVT prophylaxis Continue IV antibiotics Wound vac Stoma teaching
[2017-09-08 08:21] VITALS: BP 122/82
[2017-09-08 08:38] LABS: ABSOLUTE BASOPHIL COUNT 0 /CUMM (0.0-0.2); ABSOLUTE EOSINOPHIL COUNT 0.1 /CUMM (0.0-0.7); ABSOLUTE GRANULOCYTE CT 12.1 /CUMM (1.4-6.5); ABSOLUTE LYMPH COUNT 0.6 /CUMM (1.2-3.4); ABSOLUTE MONOCYTE COUNT 0.7 /CUMM (0.10-0.60); BASOPHIL % 0 % (0.0-2.0); EOSINOPHIL % 0.4 % (0-5); GRANULOCYTE % 89.8 % (42.2-75.2); HEMATOCRIT 35.6 % (42-52); MEAN CORPUSCULAR HGB 30.6 PG (27.0-31.0); MEAN CORPUSCULAR HGB CONC 33.2 G/DL (33.0-37.0); MEAN CORPUSCULAR VOLUME 92.3 FL (80.0-94.0); MEAN PLATELET VOLUME 9.6 FL (7.4-10.4); PLATELET COUNT 248 /CUMM (130-400); RBC DISTRIBUTION WIDTH 14.9 % (11.5-14.5); RED BLOOD CELL CT 3.86 /CUMM (4.70-6.10); WHITE BLOOD CELL COUNT 13.5 /CUMM (4.8-10.8)
[2017-09-08 12:01] VITALS: BP 124/80
--- NOTE | 2017-09-08 15:14 | RADIOLOGY REPORT ---
EXAMINATION: XR CHEST CLINICAL INFORMATION: Productive cough. Presumptive diagnosis of atelectasis. COMPARISON: None TECHNIQUE: 2 views of the chest were obtained on 3 images. FINDINGS: The cardiomediastinal silhouette is borderline enlarged. Low lung volumes are seen with bibasilar opacities, left greater than right, consistent with atelectasis. There is likely a small left-sided pleural effusion as well. Slight central vascular congestion is seen. No overt pulmonary edema is noted. No pneumothorax is seen. Bony structures are unremarkable. IMPRESSION: 1. Borderline enlarged heart size, likely accentuated by low lung volumes as well. 2. Mild central vascular congestion without overt pulmonary edema. 3. Bibasilar opacities, most likely related to atelectasis. Associated small left-sided pleural effusion is also seen.
[2017-09-08 16:34] VITALS: BP 136/84
[2017-09-08 20:21] VITALS: BP 142/88
--- NOTE | 2017-09-08 21:33 | Event Note ---
Event Note Event Note: WOUND VAC PLACED TO ABDOMINAL WOUND AT BEDSIDE. MIDLINE WOUND ASSESSED- WOUND EDGES CLEAN, GOOD GRANULATION TISSUE WITH SLIGHT BLEEDING, NO FOUL SMELLL, NO PURULENCE. BLACK SPONGE PLACED (3 PIECES TO WOUND BED, WITH 2 BRIDGES). OSTOMY APPLIANCE ALSO CHANGED DUE TO CLOSE PROXIMITY TO MIDLINE/WOUNDVAC DRESSING. STOMA PINK, EDEMATOUS, FUNCTIONING WITH 150CC LIQUID BROWN STOOL AND GAS IN BAG. PT TOLERATED WELL. NEXT WOUND VAC CHANGE LATE FRI PM OR SAT AM. OSTOMY APPLIANCE CHANGE PRN.
[2017-09-09 03:54] VITALS: BP 146/82
[2017-09-09 08:09] VITALS: BP 132/80
--- NOTE | 2017-09-09 08:38 | PN- General Surgery ---
Surgical Brief Attending Note Brief Attending Note: Patient continues to feel better He is tolerating a clear liquid diet the stoma is functioning well His tachycardia is improving LUCIANO drain in the left lower quadrant serosanguineous, LUCIANO drain in the right lower quadrant which is closest to the anastomotic dehiscence site scant murky drainage Overall the patient appears to be clinically improving quickly, the concern is slightly elevated blood cell count Advanced to a low fiber diet today Hep-Lock IV fluids Continue IV antibiotics Follow up with morning labs and follow-up pathology
[2017-09-09 12:10] VITALS: BP 158/82
[2017-09-09 13:36] LABS: ABSOLUTE BASOPHIL COUNT 0 /CUMM (0.0-0.2); ABSOLUTE EOSINOPHIL COUNT 0.2 /CUMM (0.0-0.7); ABSOLUTE GRANULOCYTE CT 12.1 /CUMM (1.4-6.5); ABSOLUTE LYMPH COUNT 0.8 /CUMM (1.2-3.4); ABSOLUTE MONOCYTE COUNT 1.8 /CUMM (0.10-0.60); BASOPHIL % 0.2 % (0.0-2.0); EOSINOPHIL % 1.5 % (0-5); GRANULOCYTE % 80.8 % (42.2-75.2); HEMATOCRIT 36.7 % (42-52); MEAN CORPUSCULAR HGB 30.1 PG (27.0-31.0); MEAN CORPUSCULAR HGB CONC 32.8 G/DL (33.0-37.0); MEAN CORPUSCULAR VOLUME 91.8 FL (80.0-94.0); MEAN PLATELET VOLUME 8.9 FL (7.4-10.4); PLATELET COUNT 290 /CUMM (130-400); RBC DISTRIBUTION WIDTH 15.3 % (11.5-14.5)
[2017-09-09 14:42] VITALS: BP 158/80
[2017-09-09 20:00] VITALS: BP 166/80
[2017-09-10] VITALS (7 sets, daily range): BP systolic 132–168; BP diastolic 64–86
--- NOTE | 2017-09-10 07:37 | PN- General Surgery ---
Subjective Subjective: Patient reports abdominal pain, controlled with analgesics. Tolerating low fiber without nausea/vomting. He reports ambulating in the [place] yesterday and had been using his incentive spirometry. He reports having been weaned off oxygen yesterday, but had to have it placed back on. He offers no other complaints. Objective Vital Signs and I&Os Vital Signs Date Time Temp Pulse Resp B/P B/P Pulse O2 O2 Flow FiO2 Mean Ox Delivery Rate 09/10 0412 98.2 97 22 160/80 94 Nasal 1.0L Cannula 09/10 0106 98.1 168/86 09/10 0013 98.8 97 20 93 Nasal 1.0L Cannula 09/10 0000 94 Nasal 1.0L Cannula 09/09 2000 98.2 101 18 166/80 92 Nasal 1.5L Cannula 09/09 1525 93 Room Air 09/09 1442 98.1 97 18 158/80 94 Nasal 1.5L Cannula 09/09 1210 98.4 98 18 158/82 95 Room Air 09/09 0809 98.3 90 20 132/80 95 Nasal 1.5L Cannula 09/09 0800 95 Nasal 1.5L Cannula Intake & Output 09/10 0800 09/10 0000 09/09 1600 09/09 0800 09/09 0000 09/08 1600 Intake Total 130 120 950 382 633 0797 Output Total 275 163 0261 640 1375 1390 Balance -620 -435 -340 80 -1030 -140 Intake, IV 130 100 600 225 600 Intake, Oral 120 850 120 120 650 Output, 5 15 10 0 15 Drainage Output, Stool 150 150 550 380 225 625 Output, Urine 600 400 196 103 6101 750 Physical Exam: Gen - resting comfortably in nad with supp O2 via nc in place Card - S1S2 Lungs - Diminsihed at bases, otherwise clear Abd - midline wv in place, stoma pink, viable, with aldo in place. thin liquid brown material in abg, appropriately tender per-incisionally, LUCIANO x2 with serosanguinous drainage on left and right with scant brown murky drainage Ext - no edema or calf tenderness Current Medications: Current Medications Sig/Milton Start time Last Medication Dose Route Stop Time Status Admin Ceftriaxone Sodium 2,000 MG DAILY@2100 09/05 2100 AC 09/09 IV 2147 Heparin Sodium 5,000 UNIT Q8 09/03 2200 AC 04/13 (Porcine) SC 0614 Insulin Aspart 0 TIDAC 09/09 1200 AC 09/09 SC 1143 Insulin Human Regular 0 Q6 09/05 1200 DC 09/09 SC 0602 Loperamide HCl 2 MG TIDAC 09/09 1200 AC 09/09 PO 1541 Lorazepam 0.5 MG Q4P PRN 09/05 1045 AC 09/07 IV 2154 Metronidazole 500 MG IQ8 09/06 0000 AC 09/10 N/A 1 UNIT IV 0059 Morphine Sulfate 4 MG Q3P PRN 09/06 0815 AC 09/10 IV 0614 Morphine Sulfate 2 MG Q3P PRN 09/06 0815 AC IV Ondansetron HCl 4 MG Q6P PRN 09/03 1915 AC 09/04 IV 0030 Pantoprazole Sodium 40 MG DAILY 09/07 1009 AC 09/09 IV 0807 Potassium Chloride 20 MEQ Q13H 09/08 08 DC 09/09 Dextrose/Sodium 1,000 ML IV 0714 Chloride Results Last 48 Hours of Labs: Laboratory Tests 09/10 09/09 0602 1200 Hematology CBC w Diff Pending MAN DIFF ORDERED WBC (4.8 - 10.8 /CUMM) Pending 15.0 H RBC (4.70 - 6.10 /CUMM) Pending 4.00 L Hgb (14.0 - 18.0 G/DL) Pending 12.1 L Hct (42 - 52 %) Pending 36.7 L MCV (80.0 - 94.0 FL) Pending 91.8 MCH (27.0 - 31.0 PG) Pending 30.1 MCHC (33.0 - 37.0 G/DL) Pending 32.8 L RDW (11.5 - 14.5 %) Pending 15.3 H Plt Count (130 - 400 /CUMM) Pending 290 MPV (7.4 - 10.4 FL) Pending 8.9 Gran % (42.2 - 75.2 %) 80.8 H Lymphocytes % (20.5 - 51.1 %) 5.2 L Monocytes % (1.7 - 9.3 %) 12.3 H Eosinophils % (0 - 5 %) 1.5 Basophils % (0.0 - 2.0 %) 0.2 Absolute Granulocytes (1.4 - 6.5 /CUMM) 12.1 H Segmented Neutrophils (42.2 - 75.2 %) 75 Band Neutrophils (0.0 - 5.0 %) 4 Absolute Lymphocytes (1.2 - 3.4 /CUMM) 0.8 L Lymphocytes (20.5 - 51.1 %) 6 L Monocytes (1.7 - 9.3 %) 10 H Absolute Monocytes (0.10 - 0.60 /CUMM) 1.8 H Eosinophils (0 - 5.0 %) 1 Absolute Eosinophils (0.0 - 0.7 /CUMM) 0.2 Basophils (0.0 - 2.0 %) 2 Absolute Basophils (0.0 - 0.2 /CUMM) 0 Metamyelocytes (0.0 - 1.0 %) 1 Myelocytes (0 - 0 %) 1 H Platelet Estimate (ADEQUATE) ADEQUATE Normocytic RBCs VERIFIED Normochromic RBCs VERIFIED Assessment/Plan Assessment/Plan 52 M POD 7 s/p robotic LAR, POD 5 s/p loop ileostomy for anastamotic dihiscence, improving overall, worsening leukocytosis yesterday Low fiber diet Cont IV abx - rocephin, flagyl Cont pain regimen, transition to po LUCIANO x2 to bulb suction WV change later today Wean O2 Encourage ambulation, IS F/u labs, path Will require VNA for drains upon d/c Will d/w with Dr. Howe Core Measures Venous Thromboembolism VTE Risk Factors Surgery (A) No Mechanical VTE Prophylaxis d/t N/A MechProphylax Ordered No VTE Pharm Prophylaxis d/t NA PharmProphylax ordered
--- NOTE | 2017-09-10 07:54 | PN- General Surgery ---
Surgical Brief Attending Note Brief Attending Note: Patient states feeling even better today Tolerating a diet Stoma functioning well Right lower quadrant LUCIANO drain clearing Will increase Imodium to 2 tablets 3 times a day today His white cell count comes down patient can discharge home with services If the WBC count goes up should hand scan and CT chest abdomen and pelvis with IV contrast
--- NOTE | 2017-09-10 08:14 | Patient Discharge Instructions ---
Discharge Instructions General Discharge Information You were seen/treated for: large adenoma of rectum s/p robotic low anterior resection with colon to low rectum anastomosis and rigid sigmoidoscopy for the evaluation of anastomotic integrity (09/03/17) Post-op anastomotic leak requiring exploratory laparotomy with washout of abdominal cavity, diverting loop ileostomy (09/05/17) You had these procedures: Surgery Date: 09/03/17 Name of Procedure: 1. Robotic low anterior resection with colon to low rectum anastomosis 2. Rigid sigmoidoscopy for the evaluation of anastomotic integrity Surgery Date: 09/05/17 Name of Procedure: 1. Exploratory laparotomy with washout of abdominal cavity 2. Diverting loop ileostomy 3. Rigid sigmoidoscopy Watch for these problems: fever>101.3, increased pain, increased redness/swelling/drainage, dizziness, shortness of breath, chest pains Other wound care: wound vac therapy to continue three times/week wednesday/wednesday/wednesday dressing changes midline Special Instructions: drain to be flushed by home care with 5-10 cc of normal saline daily Please document amount of output and report to Dr. Howe when you see him in the office ileostomy care, with home health services to assist Diet Continue normal diet: No Recommended Diet: Low Residue Activity Full Activity/No Limits: No Activity Self Limited: Yes Pounds, do NOT lift more than: 10 Other activity limits: no heavy lifting >10lbs. no strenuous activity. Acute Coronary Syndrome Inclusion Criteria At DC or during hospital stay patient has or had the following: ACS DIAGNOSIS No Discharge Core Measures Meds if any: Prescribed or Continued at Discharge Meds if any: NOT Prescribed or Continued at Discharge Congestive Heart Failure Inclusion Criteria At DC or during hospital stay patient has or had the following: CHF DIAGNOSIS No Discharge Core Measures Meds if any: Prescribed or Continued at Discharge Meds if any: NOT Prescribed or Continued at Discharge Cerebrovascular accident Inclusion Criteria At DC or during hospital stay patient has or had the following: CVA/TIA Diagnosis No Discharge Core Measures Meds if any: Prescribed or Continued at Discharge Meds if any: NOT Prescribed or Continued at Discharge Venous thromboembolism Inclusion Criteria VTE Diagnosis No VTE Type NONE VTE Confirmed by (Test) NONE Discharge Core Measures - Per Current guidelines, there needs to be overlap - treatment for the first 5 days of Warfarin therapy. - If discharged on Warfarin prior to 5 days of - overlap therapy, the patient will need to be - assessed for post discharge needs including - *Post discharge parental anticoagulation - *Warfarin and/or parental anticoagulation education - *Follow up date to check INR post discharge At least 5 days overlap therapy as Inpatient No Meds if any: Prescribed or Continued at Discharge Note: Overlap Therapy is Warfarin and Anticoagulant Meds if any: NOT Prescribed or Continued at Discharge
[2017-09-10] MEDS ORDERED: PERCOCET 5-3251 EACH PO (08:22)
[2017-09-10] MEDS ORDERED: LOPERAMIDE2 M2 PO (08:22)
[2017-09-10] MEDS ORDERED: FLAGYL500 MG PO (08:22)
[2017-09-10] MEDS ORDERED: CIPRO500 M1 PO (08:22)
[2017-09-10 08:31] LABS: ABSOLUTE BASOPHIL COUNT 0 /CUMM (0.0-0.2); ABSOLUTE EOSINOPHIL COUNT 0.2 /CUMM (0.0-0.7); ABSOLUTE GRANULOCYTE CT 15.6 /CUMM (1.4-6.5); ABSOLUTE LYMPH COUNT 0.7 /CUMM (1.2-3.4); ABSOLUTE MONOCYTE COUNT 2.5 /CUMM (0.10-0.60); BASOPHIL % 0 % (0.0-2.0); EOSINOPHIL % 0.8 % (0-5); GRANULOCYTE % 82.2 % (42.2-75.2); HEMATOCRIT 36.4 % (42-52); MEAN CORPUSCULAR HGB 30.1 PG (27.0-31.0); MEAN CORPUSCULAR HGB CONC 32.8 G/DL (33.0-37.0); MEAN CORPUSCULAR VOLUME 91.8 FL (80.0-94.0); MEAN PLATELET VOLUME 8.8 FL (7.4-10.4); PLATELET COUNT 295 /CUMM (130-400); RBC DISTRIBUTION WIDTH 15.5 % (11.5-14.5); RED BLOOD CELL CT 3.97 /CUMM (4.70-6.10)
--- NOTE | 2017-09-10 16:46 | CT SCAN REPORT ---
EXAM: Contrast-enhanced CT scan of the chest, abdomen, and pelvis. INDICATION: 52-year-old male with postop leukocytosis and hypoxia. COMPARISON: No similar prior examinations available for comparison. TECHNIQUE: Multidetector helical imaging of the chest, abdomen, and pelvis was obtained from the thoracic inlet through the pubic symphysis following administration of 95 cc of Optiray 320 IV contrast. Coronal and sagittal reformatted images that were obtained were also reviewed. DLP: 1074 mGy-cm FINDINGS: CHEST: The heart is enlarged. No pericardial effusion. No gross filling defects of the main or segmental pulmonary arteries. Evaluation of subsegmental pulmonary arteries is suboptimal secondary to respiratory motion. A few scattered mediastinal lymph nodes are appreciated, however, none of which appear pathologically enlarged. There is a small left-sided pleural effusion with overlying airspace disease. There is mild airspace disease of the right lung base. Overall mild groundglass haziness of the lungs is nonspecific but may be secondary to respiratory motion or poor inspiratory effort. ABDOMEN/PELVIS: The liver demonstrates normal size and contour. Attenuation of the liver is diffusely decreased suggesting possible hepatic steatosis. There is a 1.3 cm cyst within the right hepatic dome. A few other subcentimeter hepatic hypodensities are too small to accurately characterize. The gallbladder is physiologically distended. There is a gallstone within the dependent portion of the gallbladder. No obvious gallbladder wall thickening. The pancreas is normal in appearance. The spleen demonstrates homogeneous enhancement. There is a small inferior lateral splenule. There is a moderate amount of perisplenic fluid which extends anterior to the stomach and underneath the left hepatic lobe. The fluid displaces the spleen inferiorly. This fluid is nonspecific but demonstrates slightly higher attenuation than suspected simple fluid.. There is some stranding within this fluid. Haziness of the left paracolic gutter suggest tracking of this fluid inferiorly into the pelvis. No gross fluid collection of the pelvis. The adrenal glands are unremarkable. The kidneys demonstrate symmetric enhancement without hydronephrosis. Loops of small bowel are nondilated. Several loops of small bowel demonstrate good contrast opacification. There is no evidence of gross contrast extravasation into the peritoneum. Surgical changes of the right lower quadrant consistent with diverting ileostomy placement. Anastomotic suture line of the rectum. Extensive intra-abdominal free air is noted, consistent with recent surgical history. Free air is also noted within the right hemiscrotum. There are surgical lee along the lower midline abdomen. An apparent open wound is noted within the midline abdomen which measures approximately 2.3 cm in transverse dimension. Surgical drains are present terminating within the pelvis. There is some minimal stranding of fluid within the left paracolic gutter and pelvis. The bladder is partially distended and grossly unremarkable. Punctate focus of air within the bladder is likely iatrogenic. Diffuse degenerative changes of the spine. IMPRESSION: 1. Postsurgical changes of the abdomen consistent with bowel resection and diverting ileostomy. No evidence of oral contrast extravasation into the peritoneum. Free intra-abdominal air is consistent with recent surgery. If surgery was not recent, there would be concern for bowel perforation. Clinical correlation recommended. 2. Moderate amount of somewhat complex perisplenic fluid which extends anterior to the stomach underneath the left hepatic lobe. This fluid is nonspecific. I suspect this represents a post operative hematoma, however, a developing abscess cannot be excluded. Attention on follow-up imaging is recommended. There is no thick enhancing wall to suggest abscess at this time. 3. Small left-sided pleural effusion with overlying airspace disease. This may represent significant atelectasis, however, an infiltrate cannot be excluded. Clinical correlation recommended. Attention on follow-up required. 4. No gross pulmonary embolus. 5. Diffusely decreased liver attenuation suggesting hepatic steatosis. 6. Cholelithiasis.
--- NOTE | 2017-09-10 17:24 | PN- General Surgery ---
Surgical Brief Attending Note Brief Attending Note: This is a follow-up to this morning's note Patient had CT scan chest abdomen pelvis. Patient does not have evidence of pulmonary embolus or abdominal cavity abscess. Patient does have a splenic hematoma of unclear etiology. This does not appear to be a splenic abscess Plan is to resume diet Recheck CBCs in the morning.Once WBC trends down will d/c home on PO antibiotic If leukocytosis increases again tomorrow will consult ID . Question lung as possible source
[2017-09-11] VITALS (7 sets, daily range): BP systolic 132–151; BP diastolic 72–82
[2017-09-11 08:27] LABS: ABSOLUTE BASOPHIL COUNT 0 /CUMM (0.0-0.2); ABSOLUTE EOSINOPHIL COUNT 0.2 /CUMM (0.0-0.7); ABSOLUTE GRANULOCYTE CT 19.8 /CUMM (1.4-6.5); ABSOLUTE LYMPH COUNT 0.7 /CUMM (1.2-3.4); ABSOLUTE MONOCYTE COUNT 2.4 /CUMM (0.10-0.60); BASOPHIL % 0 % (0.0-2.0); EOSINOPHIL % 0.9 % (0-5); GRANULOCYTE % 85.7 % (42.2-75.2); HEMATOCRIT 35.7 % (42-52); MEAN CORPUSCULAR HGB 30.6 PG (27.0-31.0); MEAN CORPUSCULAR HGB CONC 33.2 G/DL (33.0-37.0); MEAN CORPUSCULAR VOLUME 92.1 FL (80.0-94.0); MEAN PLATELET VOLUME 8.7 FL (7.4-10.4); PLATELET COUNT 317 /CUMM (130-400); RBC DISTRIBUTION WIDTH 15.7 % (11.5-14.5); RED BLOOD CELL CT 3.87 /CUMM (4.70-6.10); WHITE BLOOD CELL COUNT 23.1 /CUMM (4.8-10.8)
--- NOTE | 2017-09-11 09:09 | PN- General Surgery ---
See Addendum Surgical Brief Attending Note Brief Attending Note: Feels well but sweating. Eating and walking around, no abd pain. JPs fine and wound is vacd. Has been afeb. Todays WBC pending. Wing CT yesterday. On ceftriaxone and flagyl. Cont current care but if WBC rising or worsens clinically will ask ID to see.
--- NOTE | 2017-09-11 13:59 | Cons- Infect Disease ---
General Information and HPI Consulting Request Date of Consult: 09/11/17 Requested By: Jereym Howe Jr., DO Reason for Consult: Elevated white blood cell count Source of Information: patient, family Exam Limitations: no limitations History of Present Illness: This patient is a 52-year-old white male with a significant past medical history for diabetes and hypercholesterolemia. Patient was admitted to the hospital on 09/03/2017 for resection of a sigmoid mass or seen on colonoscopy 07/02/2017. The patient underwent surgery on September 03 and underwent a robotic low anterior resection with a low rectum anastomosis. He is found to have a large adenoma of the rectosigmoid. The lesion was removed without issue however on 09/05/2017 patient developed receiving abdominal pain and was found to have an anastomotic leak. He underwent an open procedure with a diverting ileostomy. Patient has been doing well postoperatively however his white blood cell count is trending up from the procedure on September 05. Currently the patient's white blood cell count is 23,000 with a left shift and bandemia without fevers. The patient complains only of abdominal distention otherwise feels well and denies any systemic features of infection. He has no significant social or travel history. Allergies/Medications Allergies: Coded Allergies: NO KNOWN ALLERGIES (09/08/11) Home Med List: Atorvastatin Calcium (Lipitor) 20 MG TABLET 1 TAB PO DAILY CHOL (Reported) Ciprofloxacin HCl (Cipro) 500 MG TABLET 1 TAB PO BID intra-abdominal infection continue for 14 days Loperamide HCl (Loperamide) 2 MG CAPSULE 4 MG PO TIDAC PRN DIARRHEA continue / adjust at direction of Metformin HCl (Glucophage) 1,000 MG TABLET 1 TAB PO BID DIABETES (Reported) Metronidazole (Flagyl) 500 MG TABLET 1 TAB PO TID intra-abdominal infection do not drink alcohol while taking this medication, and for 2 days afterwards Oxycodone HCl/Acetaminophen (Percocet 5-325 MG Tablet) 5 MG-325 MG TABLET 1-2 TAB PO Q4-6 PRN PRN pain control tylenol alternatively. do not combine. Current Medications: Current Medications Sig/Milton Start time Last Medication Dose Route Stop Time Status Admin Acetaminophen 650 MG Q6P PRN 09/10 0745 AC PO Ceftriaxone Sodium 2,000 MG DAILY@2100 09/05 2100 AC 09/10 IV 2057 Dextrose/Sodium 1,000 ML Q10H 09/10 1015 DC 09/10 Chloride IV 1059 Heparin Sodium 5,000 UNIT Q8 09/03 2200 AC 09/11 (Porcine) SC 0557 Insulin Aspart 0 TIDAC 09/09 1200 AC 09/11 SC 1159 Loperamide HCl 4 MG TIDAC 09/10 0800 AC 09/11 PO 1121 Lorazepam 0.5 MG Q4P PRN 09/05 1045 AC 09/07 IV 2154 Metronidazole 500 MG IQ8 09/06 0000 AC 09/11 N/A 1 UNIT IV 0734 Morphine Sulfate 4 MG Q3P PRN 09/06 0815 AC 09/10 IV 0614 Ondansetron HCl 4 MG Q6P PRN 09/03 1915 AC 09/04 IV 0030 Oxycodone/ 1 TAB Q4-6 PRN PRN 09/10 0745 AC Acetaminophen PO Oxycodone/ 2 TAB Q4-6 PRN PRN 09/10 0745 AC 09/11 Acetaminophen PO 1121 Pantoprazole Sodium 40 MG DAILY 09/07 1009 AC 09/11 IV 0905 Past History Travel History Other Travel History: None Medical History Blood Transfusion Hx: No Neurological: NONE EENT: NONE Cardiovascular: hypertension, hyperlipidemia Respiratory: NONE Gastrointestinal: NONE Hepatic: NONE Renal: NONE Musculoskeletal: NONE Psychiatric: NONE Endocrine: diabetes Blood Disorders: NONE Cancer(s): NONE SENIOR DATA ARCHITECT/Reproductive: NONE History of MRSA: No History of VRE: No History of CDIFF: No Isolation History: Standard Influenza Vaccine: 02/28/17 Tetanus Vaccine: 11/15/11 Surgical History Surgical History: none Psychosocial History Where Do You Live? Home Services at Home: None Primary Language: Vietnamese Smoking Status: Never Smoked ETOH Use: occasional use Illicit Drug Use: denies illicit drug use Living Will? no Other Social History: No significant travel or animal contact Employment History Employment: Employed (Works at [employer]) Profession/Employer: transport Review of Systems Review of Systems Constitutional: Reports: no symptoms. EENTM: Reports: no symptoms. Cardiovascular: Reports: no symptoms. Respiratory: Reports: no symptoms. GI: Reports: bloating, distention. Genitourinary: Reports: no symptoms. Musculoskeletal: Reports: no symptoms. Skin: Reports: no symptoms. Neurological/Psychological: Reports: no symptoms. Hematologic/Endocrine: Reports: no symptoms. Immunologic/Allergic: Reports: no symptoms. Exam & Diagnostic Data Last 24 Hrs of Vital Signs/I&O Vital Signs Date Time Temp Pulse Resp B/P B/P Pulse O2 O2 Flow FiO2 Mean Ox Delivery Rate 09/11 1300 98.2 98 18 144/82 95 Room Air 09/11 0900 98.6 94 18 146/82 94 Room Air 09/11 0800 98.3 97 18 138/72 93 Room Air 09/11 0400 98.3 102 18 148/74 93 09/11 0000 98.3 96 18 132/74 93 09/10 2000 98.5 98 18 148/78 92 Room Air 09/10 1557 98.6 90 18 140/82 93 Room Air Intake & Output 09/11 1600 09/11 0800 09/11 0000 Intake Total 650 890 Output Total 460 900 Balance 190 -10 Intake, IV 100 Intake, Oral 650 790 Output, 10 0 Drainage Output, Stool 100 300 Output, Urine 350 600 Physical Exam General Appearance: well developed/nourished, no apparent distress, alert, awake , comfortable Head: atraumatic, normal appearance Ears, Nose, Throat: normal pharynx, normal ENT inspection Neck: normal inspection, supple, full range of motion Respiratory: normal breath sounds, chest non-tender, no respiratory distress, lungs clear Cardiovascular: regular rate/rhythm Gastrointestinal: soft, non-tender, no organomegaly, distention Extremities: normal inspection Neurologic/Psych: no motor/sensory deficits, awake, alert, oriented x 3 Skin: intact (abdominal wound VAC in place c) Last 24 Hours of Lab Results: Laboratory Tests 09/11 09/11 1308 0559 Chemistry Sodium (137 - 145 mmol/L) 139 Potassium (3.5 - 5.1 mmol/L) 3.8 Chloride (98 - 107 mmol/L) 100 Carbon Dioxide (22 - 30 mmol/L) 25 Anion Gap (5 - 16) 14 BUN (9 - 20 mg/dL) 13 Creatinine (0.7 - 1.2 mg/dL) 0.6 L Estimated GFR (>60 ml/min) > 60 BUN/Creatinine Ratio (7 - 25 %) 21.7 Hematology CBC w Diff MAN DIFF ORDERED WBC (4.8 - 10.8 /CUMM) 23.1 H RBC (4.70 - 6.10 /CUMM) 3.87 L Hgb (14.0 - 18.0 G/DL) 11.8 L Hct (42 - 52 %) 35.7 L MCV (80.0 - 94.0 FL) 92.1 MCH (27.0 - 31.0 PG) 30.6 MCHC (33.0 - 37.0 G/DL) 33.2 RDW (11.5 - 14.5 %) 15.7 H Plt Count (130 - 400 /CUMM) 317 MPV (7.4 - 10.4 FL) 8.7 Gran % (42.2 - 75.2 %) 85.7 H Lymphocytes % (20.5 - 51.1 %) 3.1 L Monocytes % (1.7 - 9.3 %) 10.3 H Eosinophils % (0 - 5 %) 0.9 Basophils % (0.0 - 2.0 %) 0 Absolute Granulocytes (1.4 - 6.5 /CUMM) 19.8 H Segmented Neutrophils (42.2 - 75.2 %) 72 Band Neutrophils (0.0 - 5.0 %) 17 H Absolute Lymphocytes (1.2 - 3.4 /CUMM) 0.7 L Lymphocytes (20.5 - 51.1 %) 2 L Monocytes (1.7 - 9.3 %) 4 Absolute Monocytes (0.10 - 0.60 /CUMM) 2.4 H Absolute Eosinophils (0.0 - 0.7 /CUMM) 0.2 Absolute Basophils (0.0 - 0.2 /CUMM) 0 Metamyelocytes (0.0 - 1.0 %) 2 H Myelocytes (0 - 0 %) 3 H Platelet Estimate (ADEQUATE) ADEQUATE Normocytic RBCs VERIFIED Normochromic RBCs VERIFIED Urines Urine Color Pending Urine Clarity Pending Urine pH Pending Ur Specific [place] Pending Urine Protein Pending Urine Ketones Pending Urine Nitrite Pending Urine Bilirubin Pending Urine Urobilinogen Pending Ur Leukocyte Esterase Pending Ur Microscopic Pending Urine Hemoglobin Pending Urine Glucose Pending Last 24 Hours of Renato Results: Microbiology Date/Time Procedure - Status Source Growth 09/11 1308 Urine Culture - RECD URINE ROUT 09/11 1057 Blood Culture - RECD BLOOD 09/11 1049 Blood Culture - RECD BLOOD Diagnostic Data Recent Imaging Findings: CT scan reviewed Moderate amount of somewhat complex perisplenic fluid which extends anterior to the stomach underneath the left hepatic lobe. The fluid is nonspecific. May represent postoperative hematoma but abscess cannot be excluded. Assessment/Plan Assessment/Plan Impression: This patient is a 52-year-old white male who is found to have a large rectal mass on colonoscopy. The patient underwent robotic resection and developed an anastomotic leak. He underwent a open laparotomy with diverting ileostomy. The patient has been improving however his white blood cell count is trending up. The white blood cell count is now 23,000 with a left shift and bandemia. The patient was started on ceftriaxone and metronidazole. Even though this is not an optimal regimen does have broad-spectrum coverage for gram positives, gram negatives and anaerobes. Would not cover Pseudomonas. The patient's urinalysis from September 10 slightly positive but I would doubt that this would cause such an elevation in his white blood cell count. His lung does demonstrate atelectasis that typically would not cause an increase in white blood cell count. His abdomen demonstrates a complex collection which is likely hematoma. This type of hematoma could cause a fever however is unusual to cause an elevation in white blood cell count with a shift. I would be concerned about an evolving abscess as well as a severe C. difficile infection. Suggestion: 1. Obtain blood and urine culture 2. Continue current antibiotics 3. Follow clinically and watch for acute abdomen 4. We'll consider changing antibiotics if fever or increase in white blood cell count 5. Unlikely to be fungal or viral in origin will follow cultures Please call with further questions [phone] Problem List: 1. Adenoma of rectum Consult Acknowledgment - Thank you for your consult request.
[2017-09-12 01:00] VITALS: BP 162/74
[2017-09-12 05:01] VITALS: BP 148/72
[2017-09-12 09:16] VITALS: BP 158/70
[2017-09-12 09:32] LABS: ABSOLUTE BASOPHIL COUNT 0.1 /CUMM (0.0-0.2); ABSOLUTE EOSINOPHIL COUNT 0.1 /CUMM (0.0-0.7); ABSOLUTE GRANULOCYTE CT 22.9 /CUMM (1.4-6.5); ABSOLUTE MONOCYTE COUNT 1.7 /CUMM (0.10-0.60); BASOPHIL % 0.3 % (0.0-2.0); EOSINOPHIL % 0.3 % (0-5); GRANULOCYTE % 88.8 % (42.2-75.2); HEMATOCRIT 35.7 % (42-52); MEAN CORPUSCULAR HGB 30.4 PG (27.0-31.0); MEAN CORPUSCULAR HGB CONC 33.2 G/DL (33.0-37.0); MEAN CORPUSCULAR VOLUME 91.8 FL (80.0-94.0); MEAN PLATELET VOLUME 8.1 FL (7.4-10.4); PLATELET COUNT 362 /CUMM (130-400); RBC DISTRIBUTION WIDTH 15.6 % (11.5-14.5); RED BLOOD CELL CT 3.89 /CUMM (4.70-6.10); WHITE BLOOD CELL COUNT 25.8 /CUMM (4.8-10.8)
--- NOTE | 2017-09-12 10:25 | PN- General Surgery ---
See Addendum Subjective Subjective: OOB in chair. Feels well this morning. Seen by ID yesterday Had another episode of sweats last night - none overnight or this morning, temp was checked and he did not have a fever concurrent with the swests. Pain is well controlled on meds. Ambulating without difficulty. Tolerating diet, no nausea or pain with eating. Objective Vital Signs and I&Os Vital Signs Date Time Temp Pulse Resp B/P B/P Pulse O2 O2 Flow FiO2 Mean Ox Delivery Rate 09/12 0916 98.4 103 20 158/70 94 Room Air 09/12 0501 97.7 94 20 148/72 94 09/12 0100 98.5 103 20 162/74 93 09/11 2059 98.6 94 20 151/80 95 Room Air 09/11 1652 97.8 99 20 142/78 94 Room Air 09/11 1600 Room Air 09/11 1300 98.2 98 18 144/82 95 Room Air Intake & Output 09/12 1600 09/12 0800 09/12 0000 09/11 1600 09/12 0700 09/11 0000 Intake Total 120 720 720 650 890 Output Total 1237 120 375 460 900 Balance -1117 600 345 190 -10 Intake, IV 120 100 Intake, Oral 120 720 600 650 790 Output, 12 70 0 10 0 Drainage Output, Stool 150 50 25 100 300 Output, Urine 1075 350 350 600 Physical Exam: Tmax 98.6 All VSS General: OOB in chair, no complaints, alert and oriented times three Chest: clear anteriorly bilaterally, RRR Abd: soft, nontender, good bowel sounds, ostomy pink - looks good, soft stool in bag Ext: warm, no edema Wd: vac in place with good suction Assessment/Plan Assessment/Plan overall feeling ok, continues with bouts of diaphoresis, no fever or chills tolerating low res diet wound vac in place, no cellulitis - plan for vac change M/W F fu WBC - pending fu cultures - urine ngsf, blood pending from yesterday Core Measures Venous Thromboembolism VTE Risk Factors Surgery (A) No Mechanical VTE Prophylaxis d/t N/A MechProphylax Ordered No VTE Pharm Prophylaxis d/t NA PharmProphylax ordered
--- NOTE | 2017-09-12 11:29 | PN- Infect Dx ---
Subjective Subjective: This patient is a 52-year-old white male with a significant past medical history for diabetes and hypercholesterolemia. Patient was admitted to the hospital on 09/03/2017 for a resection of a sigmoid mass seen on colonoscopy 07/02/2017. The patient underwent surgery on September 03 and underwent a robotic low anterior resection with a low rectum anastomosis. 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 The lesion was removed without issue however on 09/05/2017 patient developed abdominal pain and was found to have an anastomotic leak. He underwent an open procedure with a diverting ileostomy. Patient has been doing well postoperatively however his white blood cell count continues to trend up from the procedure on September 05. Currently the patient's white blood cell count is 26,000 with a left shift and bandemia without fevers. He does have episodes of sweating but has remained afebrile during that period of time. The patient is not on steroids or other medication that would cause an increase in his white blood cell count.The patient feels well and continues to improve. Review of Systems Constitutional: Reports: no symptoms. EENTM: Reports: no symptoms. Cardiovascular: Reports: no symptoms. Respiratory: Reports: no symptoms. Gastrointestinal: Reports: no symptoms. Genitourinary: Reports: no symptoms. Musculoskeletal: Reports: no symptoms. Skin: Reports: no symptoms. Neurological/Psychological: Reports: no symptoms. Hematologic/Endocrine: Reports: no symptoms. Objective Last 24 Hrs of Vital Signs/I&O Vital Signs Date Time Temp Pulse Resp B/P B/P Pulse O2 O2 Flow FiO2 Mean Ox Delivery Rate 09/12 0916 98.4 103 20 158/70 94 Room Air 09/12 0501 97.7 94 20 148/72 94 09/12 0100 98.5 103 20 162/74 93 09/11 2059 98.6 94 20 151/80 95 Room Air 09/11 1652 97.8 99 20 142/78 94 Room Air 09/11 1600 Room Air 09/11 1300 98.2 98 18 144/82 95 Room Air Intake & Output 09/12 1600 09/12 0800 09/12 0000 Intake Total 120 720 Output Total 1237 120 Balance -1117 600 Intake, Oral 120 720 Output, 12 70 Drainage Output, Stool 150 50 Output, Urine 1075 Physical Exam General Appearance: well developed/nourished, no apparent distress, alert, awake Head: atraumatic Ears, Nose, Throat: normal pharynx Neck: normal inspection, supple Cardiovascular: regular rate/rhythm Respiratory: normal breath sounds, chest non-tender, no respiratory distress, lungs clear Abdomen: normal bowel sounds, soft, non-tender Extremities: normal inspection Neurologic/Psychiatric: no motor/sensory deficits, awake, alert, oriented x 3 Skin: intact Results Last 24 Hours of Lab Results: Laboratory Tests 09/12 09/11 0854 1308 Hematology CBC w Diff MAN DIFF ORDERED WBC (4.8 - 10.8 /CUMM) 25.8 H RBC (4.70 - 6.10 /CUMM) 3.89 L Hgb (14.0 - 18.0 G/DL) 11.8 L Hct (42 - 52 %) 35.7 L MCV (80.0 - 94.0 FL) 91.8 MCH (27.0 - 31.0 PG) 30.4 MCHC (33.0 - 37.0 G/DL) 33.2 RDW (11.5 - 14.5 %) 15.6 H Plt Count (130 - 400 /CUMM) 362 MPV (7.4 - 10.4 FL) 8.1 Gran % (42.2 - 75.2 %) 88.8 H Lymphocytes % (20.5 - 51.1 %) 3.9 L Monocytes % (1.7 - 9.3 %) 6.7 Eosinophils % (0 - 5 %) 0.3 Basophils % (0.0 - 2.0 %) 0.3 Absolute Granulocytes (1.4 - 6.5 /CUMM) 22.9 H Segmented Neutrophils (42.2 - 75.2 %) 70 Band Neutrophils (0.0 - 5.0 %) 16 H Absolute Lymphocytes (1.2 - 3.4 /CUMM) 1.0 L Lymphocytes (20.5 - 51.1 %) 4 L Monocytes (1.7 - 9.3 %) 6 Absolute Monocytes (0.10 - 0.60 /CUMM) 1.7 H Absolute Eosinophils (0.0 - 0.7 /CUMM) 0.1 Absolute Basophils (0.0 - 0.2 /CUMM) 0.1 Metamyelocytes (0.0 - 1.0 %) 3 H Myelocytes (0 - 0 %) 1 H Platelet Estimate (ADEQUATE) ADEQUATE Hypochromic-Microcytic 1+ Anisocytosis 1+ Urines Urinalysis LIGHT H Urine Color (YEL,AMB,STR) YEL Urine Clarity (CLEAR) CLEAR Urine pH (5.0 - 8.0) 6.0 Ur Specific [place] (1.001 - 1.035) >= 1.030 Urine Protein (NEG,<30 MG/DL) 30 H Urine Ketones (NEG) TRACE H Urine Nitrite (NEG) POS H Urine Bilirubin (NEG) NEG Urine Urobilinogen (0.1 - 1.0 EU/dl) 0.2 Ur Leukocyte Esterase (NEG) TRACE H Ur Microscopic SEDIMENT EXAMINED Urine RBC (0 - 5 /HPF) RARE Urine WBC (0 - 2 /HPF) 5-10 H Ur Epithelial Cells (NONE,FEW) FEW Urine Mucus (FEW,NONE) MOD H Urine Hemoglobin (NEG) NEG Urine Glucose (N MG/DL) 250 H Last 24 Hours of Renato Results: No positive cultures Recent Imaging Studies: No new radiologic studies Assessment/Plan ID Impression: This patient is a 52-year-old white male who is found to have a large rectal mass on colonoscopy. The patient underwent robotic resection and developed an anastomotic leak. He underwent a open laparotomy with diverting ileostomy. The patient has been improving however his white blood cell count is trending up. The white blood cell count is now 26,000 with a left shift and bandemia. The patient was started on ceftriaxone and metronidazole. Even though this is not an optimal regimen does have broad-spectrum coverage for gram positives, gram negatives and anaerobes. The patient's urinalysis from September 10 slightly positive but I would doubt that this would cause such an elevation in his white blood cell count. His lung does demonstrate atelectasis that typically would not cause an increase in white blood cell count. His abdomen demonstrates a complex collection which is likely hematoma. This type of hematoma could cause a fever however is unusual to cause an elevation in white blood cell count with a shift. I would still be concerned about an evolving abscess as well as a severe C. difficile infection but the patient looks well and is improving. Suggestion: 1. Continue current antibiotics 2. Repeat blood cultures 3. May need to consider repeat abdominal CT scan Call with questions [phone]
[2017-09-12 13:17] VITALS: BP 150/68
[2017-09-12 17:00] VITALS: BP 157/83
--- NOTE | 2017-09-12 17:56 | CT SCAN REPORT ---
EXAMINATION: CT ABDOMEN AND PELVIS WITH CONTRAST CLINICAL INFORMATION: Postop colonic resection. Increased WBC count. Found to have perisplenic collection on postoperative CTs of the chest, abdomen and pelvis done on 09/10/2017. For follow-up. COMPARISON: CT of the chest, abdomen and pelvis done on 09/10/2017. TECHNIQUE: Multidetector volumetric imaging was performed of the abdomen and pelvis following administration of 900 mL of Redicat orally, and 95 mL of Optiray 320 intravenously. Sagittal and coronal reformatted images were obtained on the technologist's workstation. DLP: 756.23 mGy-cm FINDINGS: LUNG BASES: The site of the left-sided pleural effusion has increased with partial likely compressive atelectasis of left lower lobe of the lung. Compressive atelectatic changes are also noted at right lung base, unchanged. Specific note is made of 1.4 cm hypodensity within the consolidated part of left lower lobe of the lung, appear unchanged, may represent evolving abscess. LIVER, GALLBLADDER, AND BILIARY TREE: Stable diffuse hepatic hypodensity and superimposed 1.6 cm maximum dimension nonspecific focal hypodense lesion is noted along the subdiaphragmatic surface of the subcapsular medial aspect of the segment 7, 8 of right lobe of the liver (see the moser images). Two other tiny hypodensities are also noted within the left lobe of the liver, too small for accurate characterization, appears similar to prior study (see the moser images). The portal vein and the hepatic veins are patent. There is a tiny radiopaque gallstone identified, otherwise the gallbladder appears unremarkable. There is no intrahepatic or extrahepatic biliary ductal dilatation present, unchanged. PANCREAS: Unremarkable. SPLEEN: Previously documented large loculated left-sided subphrenic fluid collection is reidentified, displacing the spleen inferiorly. The fluid collection is extending around the posterior as well as anteromedial pericapsular aspect of the spleen, similar to prior study. No discrete focal parenchymal abnormality is visualized. ADRENAL GLANDS: Unremarkable. KIDNEYS AND URETERS: The kidneys are normal in size, shape, and attenuation. No hydronephrosis, hydroureter, or calculi seen. No perinephric stranding. BLADDER: Tiny air pocket is identified, likely represent changes secondary to recent intervention, similar to prior study. GASTROINTESTINAL TRACT: Postsurgical changes of bowel resection and diverting mediastinum is noted. Multiple surgical sutures are identified in the region of the distal sigmoid colon, rectum with multiple drainage catheters around the surgical bed. The large bowel is decompressed. No oral contrast is seen opacifying the small bowel loops and is passing across the ileostomy site to the overlying collection bag. There is no parastomal hernia present. Specific note is made of nonspecific circumferential thickening of the fundus, proximal part of the body of the stomach which is also displaced inferiorly by extension of the left subphrenic loculated fluid collection abutting between the stomach and the left lobe of the liver, similar to prior study. ABDOMINAL WALL: In addition to the ileostomy site, in the right periumbilical region, there is a tiny anterior abdominal wall defect identified through which a small focal fatty herniation is visualized, unchanged. LYMPH NODES: Normal. VASCULAR: Unremarkable. PELVIC VISCERA: Small amount of free fluid is noted within the right pelvic inlet. Multiple drainage catheters are present around the surgical bed. Similar to prior study. OTHER FINDINGS: Significant amount of free intraperitoneal air is noted, given the patient's prior history of surgery this would be consistent with postsurgical change. The amount of air however, does not appear to have significantly decreased since 09/10/2017. Possibility of a postoperative leak cannot be excluded. However, there is no evidence of any contrast extravasation identified. The loculated complex fluid collection seen within the left subdiaphragmatic space is irregular in outline and is difficult to measure, grossly measures up to 14.0 x 9.0 x 14.0 cm at its maximum craniocaudal by transverse by anteroposterior dimension (see the moser images), and appears relatively stable since the prior study. There is significant fat stranding identified around the collection. There is no definite evidence of any rim enhancement to suspect abscess is noted, unchanged. OSSEOUS STRUCTURES: No suspicious lytic or sclerotic abnormalities. IMPRESSION: 1. Compared to most recent prior CT scan of the chest, abdomen and pelvis done on 09/10/2017, the size of the left-sided pleural effusion has increased. Previously documented multiloculated complex nonspecific fluid collection seen within the left subdiaphragmatic space, displacing the spleen inferiorly as well as extending around the spleen and between the stomach and the left lobe of the liver is reidentified, appears stable. There is no CT features suggestive of abscess is identified. 2. No evidence of any contrast extravasation from the bowel. Persistent significant amount of free intraperitoneal air. 3. Nonspecific 1.4 cm hypodensity within the consolidated left lower lobe of the lung and stable multiple hepatic hypodensities, the largest measures 1.6 cm, seen along the subdiaphragmatic surface of segment 7, 8 of right lobe of the liver.
[2017-09-12 22:03] VITALS: BP 152/72
[2017-09-13 02:00] VITALS: BP 158/76
--- NOTE | 2017-09-13 07:57 | PN- General Surgery ---
See Addendum Subjective Subjective: feeling ok, occasional "hot flashes". elijah lrd, no n/v. pain tolerable. +oob, ambualting. using ist. no cp/sob Objective Vital Signs and I&Os Vital Signs Date Time Temp Pulse Resp B/P B/P Pulse O2 O2 Flow FiO2 Mean Ox Delivery Rate 09/13 0759 97.8 101 20 154/70 93 Room Air 09/13 0200 97.4 96 20 158/76 92 09/12 2203 98.3 92 20 152/72 93 Room Air 09/12 1732 98.5 09/12 1700 100.9 94 18 157/83 95 Room Air 09/12 1317 98.3 105 20 150/68 93 Room Air 09/12 0916 98.4 103 20 158/70 94 Room Air Intake & Output 09/13 1600 09/13 0800 09/13 0000 09/12 1600 09/12 0800 09/12 0000 Intake Total 280 650 620 120 720 Output Total 501 4060 386 0315 120 Balance -221 -759 245 -1117 600 Intake, IV 40 170 120 Intake, Oral 240 480 500 120 720 Number 1 Bowel Movements Output, 1 9 12 70 Drainage Output, Stool 200 900 25 150 50 Output, Urine 300 255 599 1856 Physical Exam: gen- nad card- s1s2 rrr pulm- diminished bs l post base, toherwise clear. no rales abd- soft. +bs. mildly ttp thoughout. midline wv to good suction. stoma pink, edematous, functioning w liquid brown stool and gas in bag. ext-calves soft nt bl Current Medications: Current Medications Sig/Milton Start time Last Medication Dose Route Stop Time Status Admin Acetaminophen 650 MG Q6P PRN 09/10 0745 AC PO Ceftriaxone Sodium 2,000 MG DAILY@2100 09/05 2100 AC 09/12 IV 2104 Heparin Sodium 5,000 UNIT .STK-MED ONE 09/12 1402 DC (Porcine) IV 09/12 1403 Heparin Sodium 5,000 UNIT Q8 09/03 2200 AC 09/13 (Porcine) SC 0615 Insulin Aspart 0 TIDAC 09/09 1200 AC 09/12 SC 1703 Loperamide HCl 4 MG TIDAC 09/10 0800 AC 09/12 PO 1704 Lorazepam 0.5 MG Q4P PRN 09/05 1045 DC 09/07 IV 2154 Metronidazole 500 MG IQ8 09/06 0000 AC 09/12 N/A 1 UNIT IV 2358 Morphine Sulfate 4 MG Q3P PRN 09/06 0815 AC 09/12 IV 1729 Omeprazole 20 MG DAILY AC 09/13 0755 AC PO Ondansetron HCl 4 MG Q6P PRN 09/03 1915 AC 09/04 IV 0030 Oxycodone/ 1 TAB Q4-6 PRN PRN 09/10 0745 AC Acetaminophen PO Oxycodone/ 2 TAB Q4-6 PRN PRN 09/10 0745 AC 09/13 Acetaminophen PO 0616 Pantoprazole Sodium 40 MG DAILY 09/07 1009 DC 09/12 IV 0742 Results Last 48 Hours of Labs: Laboratory Tests 09/13 09/12 0610 0854 Hematology CBC w Diff Pending MAN DIFF ORDERED WBC (4.8 - 10.8 /CUMM) Pending 25.8 H RBC (4.70 - 6.10 /CUMM) Pending 3.89 L Hgb (14.0 - 18.0 G/DL) Pending 11.8 L Hct (42 - 52 %) Pending 35.7 L MCV (80.0 - 94.0 FL) Pending 91.8 MCH (27.0 - 31.0 PG) Pending 30.4 MCHC (33.0 - 37.0 G/DL) Pending 33.2 RDW (11.5 - 14.5 %) Pending 15.6 H Plt Count (130 - 400 /CUMM) Pending 362 MPV (7.4 - 10.4 FL) Pending 8.1 Gran % (42.2 - 75.2 %) 88.8 H Lymphocytes % (20.5 - 51.1 %) 3.9 L Monocytes % (1.7 - 9.3 %) 6.7 Eosinophils % (0 - 5 %) 0.3 Basophils % (0.0 - 2.0 %) 0.3 Absolute Granulocytes (1.4 - 6.5 /CUMM) 22.9 H Segmented Neutrophils (42.2 - 75.2 %) 70 Band Neutrophils (0.0 - 5.0 %) 16 H Absolute Lymphocytes (1.2 - 3.4 /CUMM) 1.0 L Lymphocytes (20.5 - 51.1 %) 4 L Monocytes (1.7 - 9.3 %) 6 Absolute Monocytes (0.10 - 0.60 /CUMM) 1.7 H Absolute Eosinophils (0.0 - 0.7 /CUMM) 0.1 Absolute Basophils (0.0 - 0.2 /CUMM) 0.1 Metamyelocytes (0.0 - 1.0 %) 3 H Myelocytes (0 - 0 %) 1 H Platelet Estimate (ADEQUATE) ADEQUATE Hypochromic-Microcytic 1+ Anisocytosis 1+ 09/11 1308 Urines Urinalysis LIGHT H Urine Color (YEL,AMB,STR) YEL Urine Clarity (CLEAR) CLEAR Urine pH (5.0 - 8.0) 6.0 Ur Specific [place] (1.001 - 1.035) >= 1.030 Urine Protein (NEG,<30 MG/DL) 30 H Urine Ketones (NEG) TRACE H Urine Nitrite (NEG) POS H Urine Bilirubin (NEG) NEG Urine Urobilinogen (0.1 - 1.0 EU/dl) 0.2 Ur Leukocyte Esterase (NEG) TRACE H Ur Microscopic SEDIMENT EXAMINED Urine RBC (0 - 5 /HPF) RARE Urine WBC (0 - 2 /HPF) 5-10 H Ur Epithelial Cells (NONE,FEW) FEW Urine Mucus (FEW,NONE) MOD H Urine Hemoglobin (NEG) NEG Urine Glucose (N MG/DL) 250 H FS: 162, 183 Recent Imaging Studies: CT 09/12: increasing L pleural effusion, compressive ateletasis. L subphrenic loculated colection [id number] without rim enhancement. (see rads report for details) Assessment/Plan Assessment/Plan A- POD8 sp ex lap/DLI for anastamotic leak, POD10 sp robo LAR for rectal polyp, now with functioning ostomy and tolerating LR diet, afebrile with worsening leukocytosis, on katie/flag. CT over weekend shows L pleural effusion/compressive atelectasis and large L subphrenic loculated collection. Midline incision with wv to good suction. FS slightly elevated. P- -concern for L subphrenic & pleural fluid- source of wbc? drainable? -cont abx. fu bld cx- prelim negative. ?repeat blood cultures -CBC pending, trend WBC -adjust RISS -cont oob, ambulate, alps, hepsq -cont ist -cont LR diet, immodium atc, strict I&Os -appreciate ID input -will dw Dr. Howe Core Measures Venous Thromboembolism VTE Risk Factors Surgery (A) No Mechanical VTE Prophylaxis d/t N/A MechProphylax Ordered No VTE Pharm Prophylaxis d/t NA PharmProphylax ordered
[2017-09-13 07:59] VITALS: BP 154/70
[2017-09-13 08:28] LABS: ABSOLUTE BASOPHIL COUNT 0.1 /CUMM (0.0-0.2); ABSOLUTE EOSINOPHIL COUNT 0.1 /CUMM (0.0-0.7); ABSOLUTE GRANULOCYTE CT 24.5 /CUMM (1.4-6.5); ABSOLUTE LYMPH COUNT 0.8 /CUMM (1.2-3.4); ABSOLUTE MONOCYTE COUNT 2.4 /CUMM (0.10-0.60); BASOPHIL % 0.2 % (0.0-2.0); EOSINOPHIL % 0.2 % (0-5); GRANULOCYTE % 88.1 % (42.2-75.2); HEMATOCRIT 34.9 % (42-52); MEAN CORPUSCULAR HGB 30.5 PG (27.0-31.0); MEAN CORPUSCULAR VOLUME 92.1 FL (80.0-94.0); MEAN PLATELET VOLUME 8.5 FL (7.4-10.4); PLATELET COUNT 382 /CUMM (130-400); RBC DISTRIBUTION WIDTH 15.4 % (11.5-14.5); RED BLOOD CELL CT 3.79 /CUMM (4.70-6.10); WHITE BLOOD CELL COUNT 27.8 /CUMM (4.8-10.8)
--- NOTE | 2017-09-13 09:41 | PN- General Surgery ---
Surgical Brief Attending Note Brief Attending Note: Overall patient appears to be clinically improving Patient tolerating a diet , stoma working, pelvic JPs clearing and patient subjectively states he feels well CT scan repeated yesterday for persistently rising WBC. Review the CT scan with interventional radiology today. And is as follows: Do ultrasound-guided aspirate of both pleural cavity and left upper quadrant of abdominal cavity. If the aspirate is Per[place] believe drain in the supra splenic space. Will send aspirate for analysis and cultures
[2017-09-13 10:26] LABS: PT 15.5 SEC (9.4-12.5)
--- NOTE | 2017-09-13 11:15 | PN- Infect Dx ---
Subjective Subjective: MAXIMUM TEMPERATURE 100.9. He has no complaints. Objective Last 24 Hrs of Vital Signs/I&O Vital Signs Date Time Temp Pulse Resp B/P B/P Pulse O2 O2 Flow FiO2 Mean Ox Delivery Rate 09/13 0759 97.8 101 20 154/70 93 Room Air 09/13 0200 97.4 96 20 158/76 92 09/12 2203 98.3 92 20 152/72 93 Room Air 09/12 1732 98.5 09/12 1700 100.9 94 18 157/83 95 Room Air 09/12 1317 98.3 105 20 150/68 93 Room Air Intake & Output 09/13 1600 09/13 0800 09/13 0000 Intake Total 280 650 Output Total 501 1409 Balance -221 -759 Intake, IV 40 170 Intake, Oral 240 480 Output, 1 9 Drainage Output, Stool 200 900 Output, Urine 300 500 Physical Exam Other Physical Findings: He appears comfortable in no acute distress Lungs decreased breath sounds at the left base Heart regular rhythm with no murmur Abdomen is mildly distended, nontender with positive bowel sounds; colostomy with liquid stool Extremities no cyanosis, clubbing or edema Results Last 24 Hours of Lab Results: Laboratory Tests 09/13 09/13 1004 0610 Coagulation PT (9.4 - 12.5 SEC) 15.5 H INR (0.90 - 1.17) 1.42 H Hematology CBC w Diff MAN DIFF ORDERED WBC (4.8 - 10.8 /CUMM) 27.8 H RBC (4.70 - 6.10 /CUMM) 3.79 L Hgb (14.0 - 18.0 G/DL) 11.5 L Hct (42 - 52 %) 34.9 L MCV (80.0 - 94.0 FL) 92.1 MCH (27.0 - 31.0 PG) 30.5 MCHC (33.0 - 37.0 G/DL) 33.0 RDW (11.5 - 14.5 %) 15.4 H Plt Count (130 - 400 /CUMM) 382 MPV (7.4 - 10.4 FL) 8.5 Gran % (42.2 - 75.2 %) 88.1 H Lymphocytes % (20.5 - 51.1 %) 3.0 L Monocytes % (1.7 - 9.3 %) 8.5 Eosinophils % (0 - 5 %) 0.2 Basophils % (0.0 - 2.0 %) 0.2 Absolute Granulocytes (1.4 - 6.5 /CUMM) 24.5 H Segmented Neutrophils (42.2 - 75.2 %) 75 Band Neutrophils (0.0 - 5.0 %) 10 H Absolute Lymphocytes (1.2 - 3.4 /CUMM) 0.8 L Lymphocytes (20.5 - 51.1 %) 2 L Monocytes (1.7 - 9.3 %) 6 Absolute Monocytes (0.10 - 0.60 /CUMM) 2.4 H Eosinophils (0 - 5.0 %) 3 Absolute Eosinophils (0.0 - 0.7 /CUMM) 0.1 Absolute Basophils (0.0 - 0.2 /CUMM) 0.1 Myelocytes (0 - 0 %) 4 H Platelet Estimate (ADEQUATE) ADEQUATE Normocytic RBCs VERIFIED Normochromic RBCs VERIFIED Last 24 Hours of Renato Results: Blood cultures 2 September 11 negative Urine culture September 11 negative Recent Imaging Studies: CT of the abdomen and pelvis with contrast September 12 reveals a stable, multiloculated complex nonspecific fluid collection within the left subdiaphragmatic space, measuring 14 x 9 x 14 cm; significant free intraperitoneal air, not significantly decreased from the previous study; increased left pleural effusion compared to the previous study Assessment/Plan ID Impression: Low-grade fever with increasing white blood cell count now 8 days status post exploratory laparotomy and washout of the abdominal cavity with a divertng loop ileostomy for an anastomotic leak 2 days following a 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 His perisplenic collection is worrisome for an abscess and he is scheduled for aspiration/drainage of this later today. The left pleural effusion may represent a sympathetic effusion but empyema is also possible, and he is also scheduled for a left thoracentesis later today. He remains on Ceftriaxone and Flagyl, which was begun after his repeat surgery for the anastomotic leak, and this can be continued pending results of today's procedures. Suggestion: 1. Await drainage of the perisplenic collection and left thoracentesis later today 2. Continue Ceftriaxone and Flagyl pending cultures from the above procedures
[2017-09-13 12:21] VITALS: BP 148/74
[2017-09-13 16:01] VITALS: BP 160/78
--- NOTE | 2017-09-13 16:39 | RADIOLOGY REPORT ---
EXAMINATION:\H\ \N\XR CHEST CLINICAL INFORMATION: Status post left pneumothorax COMPARISON: Chest radiograph dated 09/08/[address] dated 09/12/2017 TECHNIQUE: Frontal view of the chest was obtained. FINDINGS: Free air is noted beneath the right hemidiaphragm. This was also present on the CT scan from yesterday. No left-sided pneumothorax is seen. Small right pleural effusion persists. IMPRESSION: 1. No left-sided pneumothorax status post thoracentesis 2. Intra-abdominal free air.
--- NOTE | 2017-09-13 17:18 | ULTRASOUND REPORT ---
CLINICAL HISTORY: This patient is a 52-year-old male with left pleural effusion. The patient is referred to interventional radiology for ultrasound-guided thoracentesis. PROCEDURE: Ultrasound-guided thoracentesis. COMPARISON: None. ACCESS: 6 Fr Espn-W-Xzekeuyx closed needle/catheter system. PROCEDURALIST: Marko Tinsley D.O.. MEDICATIONS: 10 mL of 1% lidocaine SQ. COMPLICATIONS: None. ESTIMATED BLOOD LOSS: <5 mL. SPECIMENS: 500 mL clear yellow fluid. PROCEDURE NOTE: Appropriate pre-procedure medical history and imaging studies were reviewed. Informed consent was obtained from the patient prior to the procedure. During this process, the procedure and potential alternatives were explained along with the intended outcome and benefits. The risks of the procedure, including the possibility of an unsuccessful procedure, as well as the risk of not doing the procedure, were discussed. The patient was given the opportunity to ask questions regarding the procedure and appeared competent to make decisions. A signed consent form documenting this discussion was placed in the medical record. A time-out procedure was performed. The patient was brought to the ultrasound department and placed in the seated position. Ultrasound images of the left thorax were obtained to localize a small to moderate pleural effusion. Images were permanently saved to the record. An area of the patient's left back was prepped and draped in the standard sterile fashion. 10 mL of 1% lidocaine was used to obtain local anesthesia of the skin and deeper tissues. A standard small-bore needle was introduced to sample fluid and demonstrated a safe access route. There was no evidence of traversing adjacent organs or vascular structures. A 6 Fr Awrg-O-Tubxhgua closed needle/catheter system was utilized for access. 500 mL of clear yellow fluid was aspirated before drainage ceased. The catheter was removed and a sterile dressing applied. The patient tolerated the procedure well without evidence of immediate complications. FINDINGS: Small to moderate simple left pleural effusion. IMPRESSION: Successful left ultrasound-guided therapeutic and diagnostic thoracentesis yielding 500 mL of clear yellow fluid. PLAN: 1. A postprocedure chest x-ray was ordered and will be dictated separately. 2. The patient was stable after the procedure and transferred to their room with instructions after standard monitoring.
--- NOTE | 2017-09-13 17:22 | ULTRASOUND REPORT ---
CLINICAL HISTORY: This patient is a 52 years-old Male with perisplenic collection, who is referred to interventional radiology for ultrasound-guided aspiration. PROCEDURE: Ultrasound-guided aspiration of perisplenic collection. PROCEDURALIST: Dr. Marko Tinsley MEDICATIONS: 10 mL of 1% lidocaine SQ. COMPLICATIONS: None. ESTIMATED BLOOD LOSS: <5 mL. SPECIMENS: A specimen was appropriately labeled and sent to the laboratory as requested. PROCEDURE NOTE: Informed consent was obtained from the patient prior to the procedure. During this process, the procedure and potential alternatives were explained along with the intended outcome and benefits. The risks of the procedure, including the possibility of an unsuccessful procedure, as well as the risk of not doing the procedure, were discussed. The patient was given the opportunity to ask questions regarding the procedure and appeared competent to make decisions. A signed consent form documenting this discussion was placed in the medical record. A time-out procedure was performed. Appropriate pre-procedure medical history and imaging studies were reviewed. The patient was brought to the ultrasound room and placed in the sitting position. Ultrasound images of the left upper quadrant were obtained to localize a small septated perisplenic. Images were permanently saved to the record. An area of the posterior lateral left upper abdomen was prepped and draped in the standard sterile fashion. 10 mL of 1% lidocaine was used to obtain local anesthesia of the skin and deeper tissues. A standard small-bore needle was introduced to sample fluid and demonstrated a safe access route. There was no evidence of traversing adjacent organs or vascular structures. A 6 Fr Rxfr-O-Khiueljz closed needle/catheter system was utilized for access. 220 mL of slightly turbid jaja-colored fluid was aspirated before drainage ceased. The catheter was removed and sterile dressing applied. The patient tolerated the procedure well without evidence of complications. FINDINGS: Small slightly complex perisplenic collection. Approximately 220 mL of slightly turbid jaja-colored fluid was removed with a sample sent for culture. IMPRESSION: Successful ultrasound-guided perisplenic collection aspiration. PLAN: The patient was stable after the procedure. The patient will be transferred back to his medical room.
[2017-09-13 19:51] VITALS: BP 141/79
[2017-09-14] VITALS: BP 148/75
[2017-09-14 04:00] VITALS: BP 141/79
[2017-09-14 08:02] VITALS: BP 155/85
--- NOTE | 2017-09-14 08:55 | PN- General Surgery ---
Subjective Subjective: Patient feeling well this morning. Has no issues or complaints. Ambulating, voiding, tolerating a low residue diet, and pain well controlled. Ostomy and wound vac changed yest. Home vac has arrived. No other concerns per nursing. Objective Vital Signs and I&Os Vital Signs Date Time Temp Pulse Resp B/P B/P Pulse O2 O2 Flow FiO2 Mean Ox Delivery Rate 09/14 0802 97.7 91 20 155/85 92 Room Air 09/14 0400 99.1 89 18 141/79 93 Room Air 09/14 0000 Room Air 09/14 0000 98.7 88 18 148/75 94 Room Air 09/13 1951 99.1 90 18 141/79 94 Room Air 09/13 1601 98.7 100 20 160/78 91 Room Air 09/13 1221 98.3 95 20 148/74 92 Room Air Intake & Output 09/14 1600 09/14 0800 09/14 0000 09/13 1600 09/13 0800 09/13 0000 Intake Total 580 530 520 280 650 Output Total 55 560 286 002 9779 Balance 525 -30 -380 -221 -759 Intake, IV 100 130 400 40 170 Intake, Oral 480 400 120 240 480 Output, 5 10 1 9 Drainage Output, Stool 50 250 200 900 Output, Urine 550 650 300 500 Physical Exam: General: A, A, NAD Abdomen: Soft, NT, ND, wound vac in place, bud drain x 2 with scant sangopurulent drainage, ostomy beefy red, functioning, viable, liquid stool and mucous in the appliance Extremities: No clubbing, cyanosis or edema Current Medications: Current Medications Sig/Milton Start time Last Medication Dose Route Stop Time Status Admin Acetaminophen 650 MG Q6P PRN 09/10 0745 PO Ceftriaxone Sodium 2,000 MG DAILY@2100 09/05 2100 AC 09/13 IV 2132 Dextrose/Sodium 1,000 ML Q10H 09/13 0915 DC 09/13 Chloride IV 0923 Fentanyl Citrate 0 .STK-MED ONE 09/13 1342 DC .ROUTE Heparin Sodium 5,000 UNIT Q8 09/13 2200 AC 09/14 (Porcine) SC 0508 Heparin Sodium 5,000 UNIT Q8 09/03 2200 DC 09/13 (Porcine) SC 0615 Insulin Aspart 0 TIDAC 09/09 1200 AC 09/13 SC 1844 Loperamide HCl 4 MG TIDAC 09/10 0800 AC 09/13 PO 1655 Metronidazole 500 MG IQ8 09/06 0000 AC 09/13 N/A 1 UNIT IV 2343 Morphine Sulfate 4 MG Q3P PRN 09/06 0815 09/13 IV 1219 Omeprazole 20 MG DAILY AC 09/13 0755 AC 09/14 PO 0508 Ondansetron HCl 4 MG Q6P PRN 09/03 1915 AC 09/04 IV 0030 Oxycodone/ 1 TAB Q4-6 PRN PRN 09/10 0745 AC Acetaminophen PO Oxycodone/ 2 TAB Q4-6 PRN PRN 09/10 0745 AC 09/14 Acetaminophen PO 0508 Results Last 48 Hours of Labs: Laboratory Tests 09/14 09/13 09/13 0730 1004 0610 Chemistry Sodium Pending Potassium Pending Chloride Pending Carbon Dioxide Pending Anion Gap Pending BUN Pending Creatinine Pending BUN/Creatinine Ratio Pending Glucose Pending Phosphorus Pending Magnesium Pending Coagulation PT (9.4 - 12.5 SEC) 15.5 H INR (0.90 - 1.17) 1.42 H Hematology CBC w Diff Pending MAN DIFF ORDERED WBC (4.8 - 10.8 /CUMM) Pending 27.8 H RBC (4.70 - 6.10 /CUMM) Pending 3.79 L Hgb (14.0 - 18.0 G/DL) Pending 11.5 L Hct (42 - 52 %) Pending 34.9 L MCV (80.0 - 94.0 FL) Pending 92.1 MCH (27.0 - 31.0 PG) Pending 30.5 MCHC (33.0 - 37.0 G/DL) Pending 33.0 RDW (11.5 - 14.5 %) Pending 15.4 H Plt Count (130 - 400 /CUMM) Pending 382 MPV (7.4 - 10.4 FL) Pending 8.5 Gran % (42.2 - 75.2 %) 88.1 H Lymphocytes % (20.5 - 51.1 %) 3.0 L Monocytes % (1.7 - 9.3 %) 8.5 Eosinophils % (0 - 5 %) 0.2 Basophils % (0.0 - 2.0 %) 0.2 Absolute Granulocytes (1.4 - 6.5 /CUMM) 24.5 H Segmented Neutrophils (42.2 - 75.2 %) 75 Band Neutrophils (0.0 - 5.0 %) 10 H Absolute Lymphocytes (1.2 - 3.4 /CUMM) 0.8 L Lymphocytes (20.5 - 51.1 %) 2 L Monocytes (1.7 - 9.3 %) 6 Absolute Monocytes (0.10 - 0.60 /CUMM) 2.4 H Eosinophils (0 - 5.0 %) 3 Absolute Eosinophils (0.0 - 0.7 /CUMM) 0.1 Absolute Basophils (0.0 - 0.2 /CUMM) 0.1 Myelocytes (0 - 0 %) 4 H Platelet Estimate (ADEQUATE) ADEQUATE Normocytic RBCs VERIFIED Normochromic RBCs VERIFIED 09/12 853 Hematology CBC w Diff MAN DIFF ORDERED WBC (4.8 - 10.8 /CUMM) 25.8 H RBC (4.70 - 6.10 /CUMM) 3.89 L Hgb (14.0 - 18.0 G/DL) 11.8 L Hct (42 - 52 %) 35.7 L MCV (80.0 - 94.0 FL) 91.8 MCH (27.0 - 31.0 PG) 30.4 MCHC (33.0 - 37.0 G/DL) 33.2 RDW (11.5 - 14.5 %) 15.6 H Plt Count (130 - 400 /CUMM) 362 MPV (7.4 - 10.4 FL) 8.1 Gran % (42.2 - 75.2 %) 88.8 H Lymphocytes % (20.5 - 51.1 %) 3.9 L Monocytes % (1.7 - 9.3 %) 6.7 Eosinophils % (0 - 5 %) 0.3 Basophils % (0.0 - 2.0 %) 0.3 Absolute Granulocytes (1.4 - 6.5 /CUMM) 22.9 H Segmented Neutrophils (42.2 - 75.2 %) 70 Band Neutrophils (0.0 - 5.0 %) 16 H Absolute Lymphocytes (1.2 - 3.4 /CUMM) 1.0 L Lymphocytes (20.5 - 51.1 %) 4 L Monocytes (1.7 - 9.3 %) 6 Absolute Monocytes (0.10 - 0.60 /CUMM) 1.7 H Absolute Eosinophils (0.0 - 0.7 /CUMM) 0.1 Absolute Basophils (0.0 - 0.2 /CUMM) 0.1 Metamyelocytes (0.0 - 1.0 %) 3 H Myelocytes (0 - 0 %) 1 H Platelet Estimate (ADEQUATE) ADEQUATE Hypochromic-Microcytic 1+ Anisocytosis 1+ Recent Imaging Studies: US Guided Abscess Drainage 09/13/17: Successful ultrasound-guided perisplenic collection aspiration. US Guided Thoracentesis 09/13/17: Successful left ultrasound-guided therapeutic and diagnostic thoracentesis yielding 500 mL of clear yellow fluid. CXR 09/13/17: No left-sided pneumothorax status post thoracentesis, intra- abdominal free air. Assessment/Plan Assessment/Plan This is a 52 yo male with a past medical history of DM II and hyperlipidemia who is status post exploratory laparotomy with diverting loop ileostomy on 09/05/17 for anastamotic leak, and status post robotic low anterior resection for a rectal polyp on 09/03/17. Recovering well now from a surgical standpoint. 1. Ambulate, IS, turn, cough, deep breathe 2. GI/DVT Px 3. Follow up pending labs for today, noted leukocytosis yesterday 4. Continue wound vac, change tomorrow and switch to home kit 5. Continue low residue diet 6. Monitor quality and quantity of bud and ostomy output, recent 1L loss from ostomy after CT scan prep, outputs reregulated 7. Continue antibiotics per ID, appreciate their help, on Rocephin and Flagyl 8. Follow up results from yesterdays abdominal abscess drainage and thoracentesis 9. PRN analgesics and antiemetics 10. Will d/w Dr. Howe 11. Anticipate possible discharge in the next 24-48 hours Problem List: 1. Adenoma of rectum 2. History of low anterior resection of rectum 3. S/P exploratory laparotomy 4. S/P ileostomy Core Measures Venous Thromboembolism VTE Risk Factors Surgery (A) No Mechanical VTE Prophylaxis d/t N/A MechProphylax Ordered No VTE Pharm Prophylaxis d/t NA PharmProphylax ordered
[2017-09-14 08:59] LABS: ABSOLUTE BASOPHIL COUNT 0 /CUMM (0.0-0.2); ABSOLUTE EOSINOPHIL COUNT 0.1 /CUMM (0.0-0.7); ABSOLUTE GRANULOCYTE CT 19.8 /CUMM (1.4-6.5); ABSOLUTE LYMPH COUNT 0.9 /CUMM (1.2-3.4); ABSOLUTE MONOCYTE COUNT 1.7 /CUMM (0.10-0.60); BASOPHIL % 0.2 % (0.0-2.0); EOSINOPHIL % 0.3 % (0-5); GRANULOCYTE % 87.7 % (42.2-75.2); HEMATOCRIT 32.7 % (42-52); MEAN CORPUSCULAR HGB 30.5 PG (27.0-31.0); MEAN CORPUSCULAR HGB CONC 33.2 G/DL (33.0-37.0); MEAN CORPUSCULAR VOLUME 91.7 FL (80.0-94.0); MEAN PLATELET VOLUME 8.3 FL (7.4-10.4); PLATELET COUNT 369 /CUMM (130-400); RBC DISTRIBUTION WIDTH 15.9 % (11.5-14.5); RED BLOOD CELL CT 3.56 /CUMM (4.70-6.10); WHITE BLOOD CELL COUNT 22.5 /CUMM (4.8-10.8)
--- NOTE | 2017-09-14 12:22 | PN- General Surgery ---
Surgical Brief Attending Note Brief Attending Note: Patient continues to feel better each day Status post's ultrasound-guided aspiration of perisplenic fluid collection-white count down today tachycardia also improved Today left lower quadrant LUCIANO drain removed Plan is as follows Repeat CBC in the morning if white count continues to trend down DC home tomorrow on oral antibiotics to complete 14 days
[2017-09-14 12:26] VITALS: BP 140/82
--- NOTE | 2017-09-14 14:03 | PN- Infect Dx ---
Subjective Subjective: Afebrile without complaints. His breathing is easier since removal of the left pleural fluid yesterday. Objective Last 24 Hrs of Vital Signs/I&O Vital Signs Date Time Temp Pulse Resp B/P B/P Pulse O2 O2 Flow FiO2 Mean Ox Delivery Rate 09/14 1226 97.4 98 20 140/82 92 Room Air 09/14 0802 97.7 91 20 155/85 92 Room Air 09/14 0400 99.1 89 18 141/79 93 Room Air 09/14 0000 Room Air 09/14 0000 98.7 88 18 148/75 94 Room Air 09/13 1951 99.1 90 18 141/79 94 Room Air 09/13 1601 98.7 100 20 160/78 91 Room Air Intake & Output 09/14 1600 09/14 0800 09/14 0000 Intake Total 580 530 Output Total 55 560 Balance 525 -30 Intake, IV 100 130 Intake, Oral 480 400 Output, 5 10 Drainage Output, Stool 50 Output, Urine 550 Physical Exam Other Physical Findings: He appears comfortable in no acute distress Lungs decreased breath sounds at the left base Heart regular rhythm with no murmur Abdomen is soft, nontender with positive bowel sounds Extremities no cyanosis, clubbing or edema Results Last 24 Hours of Lab Results: Laboratory Tests 09/14 0730 Chemistry Sodium (137 - 145 mmol/L) 135 L Potassium (3.5 - 5.1 mmol/L) 4.2 Chloride (98 - 107 mmol/L) 99 Carbon Dioxide (22 - 30 mmol/L) 26 Anion Gap (5 - 16) 10 BUN (9 - 20 mg/dL) 12 Creatinine (0.7 - 1.2 mg/dL) 0.6 L Estimated GFR (>60 ml/min) > 60 BUN/Creatinine Ratio (7 - 25 %) 20.0 Glucose (65 - 99 mg/dL) 152 H Phosphorus (2.5 - 4.5 mg/dL) 3.2 Magnesium (1.6 - 2.3 mg/dL) 2.1 Hematology CBC w Diff MAN DIFF ORDERED WBC (4.8 - 10.8 /CUMM) 22.5 H RBC (4.70 - 6.10 /CUMM) 3.56 L Hgb (14.0 - 18.0 G/DL) 10.9 L Hct (42 - 52 %) 32.7 L MCV (80.0 - 94.0 FL) 91.7 MCH (27.0 - 31.0 PG) 30.5 MCHC (33.0 - 37.0 G/DL) 33.2 RDW (11.5 - 14.5 %) 15.9 H Plt Count (130 - 400 /CUMM) 369 MPV (7.4 - 10.4 FL) 8.3 Gran % (42.2 - 75.2 %) 87.7 H Lymphocytes % (20.5 - 51.1 %) 4.2 L Monocytes % (1.7 - 9.3 %) 7.6 Eosinophils % (0 - 5 %) 0.3 Basophils % (0.0 - 2.0 %) 0.2 Absolute Granulocytes (1.4 - 6.5 /CUMM) 19.8 H Segmented Neutrophils (42.2 - 75.2 %) 64 Band Neutrophils (0.0 - 5.0 %) 17 H Absolute Lymphocytes (1.2 - 3.4 /CUMM) 0.9 L Lymphocytes (20.5 - 51.1 %) 8 L Monocytes (1.7 - 9.3 %) 6 Absolute Monocytes (0.10 - 0.60 /CUMM) 1.7 H Absolute Eosinophils (0.0 - 0.7 /CUMM) 0.1 Basophils (0.0 - 2.0 %) 1 Absolute Basophils (0.0 - 0.2 /CUMM) 0 Metamyelocytes (0.0 - 1.0 %) 3 H Myelocytes (0 - 0 %) 1 H Platelet Estimate (ADEQUATE) ADEQUATE Hypochromic-Microcytic 2+ Anisocytosis 1+ Last 24 Hours of Renato Results: Blood cultures 2 September 11 negative Left pleural fluid culture September 13 negative Perisplenic fluid collection aspiration September 13 negative Assessment/Plan ID Impression: Stable, with temperatures normal and white blood cell count decreasing, though still elevated, status post drainage of 220 mL from the perisplenic collection yesterday, now 9 days status post exploratory laparotomy and washout of the abdominal cavity with a divertng loop ileostomy for an anastomotic leak 2 days following a 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 The culture of the perisplenic fluid is so far negative, possibly related to the Ceftriaxone and Flagyl that he has been on since his surgery for the anastomotic leak. He also underwent a left thoracentesis yesterday, with removal of 500 mL of fluid, which was only submitted for culture, which is so far negative. Suggestion: 1. Follow-up perisplenic fluid and pleural fluid cultures 2. Will likely need a follow-up CT of the abdomen and pelvis at some point before discharge 3. Continue Ceftriaxone and Flagyl pending above
[2017-09-14 16:10] VITALS: BP 148/76
[2017-09-14 22:25] VITALS: BP 156/82
[2017-09-15 04:00] VITALS: BP 118/74
[2017-09-15 06:51] VITALS: BP 142/82
--- NOTE | 2017-09-15 07:31 | PN- General Surgery ---
Surgical Brief Attending Note Brief Attending Note: Continues to clinically progress Await a.m. labs If WBC continues to trend down and then discharge home today on oral antibiotics I will follow up on the cultures and adjust antibiotics as indicated
[2017-09-15 09:28] LABS: ABSOLUTE BASOPHIL COUNT 0 /CUMM (0.0-0.2); ABSOLUTE EOSINOPHIL COUNT 0.1 /CUMM (0.0-0.7); ABSOLUTE GRANULOCYTE CT 20.2 /CUMM (1.4-6.5); ABSOLUTE LYMPH COUNT 1.1 /CUMM (1.2-3.4); ABSOLUTE MONOCYTE COUNT 1.9 /CUMM (0.10-0.60); BASOPHIL % 0 % (0.0-2.0); EOSINOPHIL % 0.4 % (0-5); GRANULOCYTE % 86.7 % (42.2-75.2); HEMATOCRIT 32.4 % (42-52); MEAN CORPUSCULAR HGB 30.4 PG (27.0-31.0); MEAN CORPUSCULAR HGB CONC 32.9 G/DL (33.0-37.0); MEAN CORPUSCULAR VOLUME 92.2 FL (80.0-94.0); MEAN PLATELET VOLUME 8.4 FL (7.4-10.4); PLATELET COUNT 389 /CUMM (130-400); RBC DISTRIBUTION WIDTH 15.7 % (11.5-14.5); RED BLOOD CELL CT 3.51 /CUMM (4.70-6.10); WHITE BLOOD CELL COUNT 23.3 /CUMM (4.8-10.8)
[2017-09-15] MEDS ORDERED: FLAGYL500 MG PO (10:27)
[2017-09-15] MEDS ORDERED: CIPRO500 M1 PO (10:27)
[2017-09-15] MEDS ORDERED: LOPERAMIDE2 M2 PO (10:30)
[2017-09-15] MEDS ORDERED: PERCOCET 5-3251 EACH PO (10:30)
--- NOTE | 2017-09-15 11:32 | PN- Infect Dx ---
Subjective Subjective: Afebrile without complaints Objective Last 24 Hrs of Vital Signs/I&O Vital Signs Date Time Temp Pulse Resp B/P B/P Pulse O2 O2 Flow FiO2 Mean Ox Delivery Rate 09/15 0651 97.8 85 20 142/82 93 09/15 0400 97.8 72 20 118/74 93 Room Air 09/14 2225 99.1 95 18 156/82 100 Room Air 09/14 1610 97.8 89 20 148/76 97 Room Air 09/14 1226 97.4 98 20 140/82 92 Room Air Intake & Output 09/15 1600 09/15 0800 09/15 0000 Intake Total 360 920 Output Total 405 703 Balance -45 217 Intake, IV 120 120 Intake, Oral 240 800 Output, 5 3 Drainage Output, Stool 200 Output, Urine 400 500 Physical Exam Other Physical Findings: He appears comfortable in no acute distress Lungs decreased breath at the left base Heart regular rhythm with no murmur Abdomen is soft, nontender with positive bowel sounds Extremities no cyanosis, clubbing or edema Results Last 24 Hours of Lab Results: Laboratory Tests 09/15 06 Hematology CBC w Diff MAN DIFF ORDERED WBC (4.8 - 10.8 /CUMM) 23.3 H RBC (4.70 - 6.10 /CUMM) 3.51 L Hgb (14.0 - 18.0 G/DL) 10.7 L Hct (42 - 52 %) 32.4 L MCV (80.0 - 94.0 FL) 92.2 MCH (27.0 - 31.0 PG) 30.4 MCHC (33.0 - 37.0 G/DL) 32.9 L RDW (11.5 - 14.5 %) 15.7 H Plt Count (130 - 400 /CUMM) 389 MPV (7.4 - 10.4 FL) 8.4 Gran % (42.2 - 75.2 %) 86.7 H Lymphocytes % (20.5 - 51.1 %) 4.9 L Monocytes % (1.7 - 9.3 %) 8.0 Eosinophils % (0 - 5 %) 0.4 Basophils % (0.0 - 2.0 %) 0 Absolute Granulocytes (1.4 - 6.5 /CUMM) 20.2 H Segmented Neutrophils (42.2 - 75.2 %) 73 Band Neutrophils (0.0 - 5.0 %) 7 H Absolute Lymphocytes (1.2 - 3.4 /CUMM) 1.1 L Lymphocytes (20.5 - 51.1 %) 6 L Monocytes (1.7 - 9.3 %) 8 Absolute Monocytes (0.10 - 0.60 /CUMM) 1.9 H Absolute Eosinophils (0.0 - 0.7 /CUMM) 0.1 Absolute Basophils (0.0 - 0.2 /CUMM) 0 Myelocytes (0 - 0 %) 6 H Platelet Estimate (ADEQUATE) ADEQUATE Hypochromic-Microcytic 1+ Anisocytosis 1+ Last 24 Hours of Renato Results: Perisplenic fluid collection September 13 positive for gram-negative rods Left pleural fluid culture September 13 negative Blood cultures 2 September 11 negative Assessment/Plan ID Impression: Clinically stable, with temperatures remaining normal, but with his white blood cell count remaining elevated despite drainage of 220 mL from the perisplenic collection 2 days ago, now 10 days status post exploratory laparotomy and washout of the abdominal cavity with a divertng loop ileostomy for an anastomotic leak 2 days following a 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 As discussed, he will need to be reimaged to rule out a residual/recurrent collection. The culture of the perisplenic fluid is positive for gram-negative rods, possibly resistant to the Ceftriaxone and Flagyl that he has been on since his surgery for the anastomotic leak, and his antibiotics can be adjusted. Suggestion: 1. Follow-up final perisplenic fluid culture 2. Repeat CT of the abdomen and pelvis with IV contrast (discussed with Surgery and IR) 3. Discontinue Ceftriaxone and Flagyl 4. Begin Meropenem 1 g IV every 8 hours pending above
[2017-09-15 11:49] VITALS: BP 138/80
--- NOTE | 2017-09-15 14:01 | CT SCAN REPORT ---
EXAMINATION: CT ABDOMEN AND PELVIS WITH CONTRAST CLINICAL INFORMATION: Persistent postoperative leukocytosis and positive cultures. Presumptive diagnosis of intra-abdominal collection. Status post colon resection. COMPARISON: CT scan of the abdomen and pelvis dated 09/12/[address] scan of the chest, abdomen and pelvis dated 09/10/2017. TECHNIQUE: Multidetector CT volumetric acquisition of the abdomen and pelvis was performed after the administration of 94 mL of intravenous Optiray 320. The data set was reformatted in the sagittal and coronal planes and reviewed on an independent workstation. DLP: 695.07 mGy-cm. FINDINGS: LOWER CHEST: Interval decrease in size of the left-sided pleural effusion is seen with no significant change in the associated dense consolidation and volume loss with air bronchograms in the inferior left lower lobe. There is also a wedge shaped area of subsegmental atelectasis in the medial right lower lobe, unchanged. The previously questioned evolving abscess in the consolidated left lower lobe is not reproduced on today's exam and may have represented loculated fluid within the left major fissure. On the current exam, there is some loculated fluid in the left major fissure. LIVER, GALLBLADDER, BILIARY TREE: Diffuse hepatic steatosis is seen with stable small low-attenuation masses in the right and left lobes of the liver, largest of which is seen in the hepatic dome (series 2, image 20), measuring approximately 1.9 x 1.7 cm, unchanged. No intra-or extrahepatic ductal dilatation. Hepatic and portal veins patent. Gallbladder well distended. Small gallstone is seen in the gallbladder neck region, nonobstructing. No pericholecystic fluid is seen. PANCREAS: Normal. No ductal dilatation, mass, or surrounding stranding. SPLEEN: Reaccumulation of the complex peripherally rim-enhancing perisplenic subcapsular fluid collection is noted with overall volume of fluid remaining very similar to the previous exam. Fluid collection is mildly complex with mean attenuation values of 22 Hounsfield units. Small locules of air are now seen within the collection, consistent with recent drainage and operative procedure. There are also multiple locules of free air seen within the abdomen, presumably related to splenic collection and left chest drainage procedure. This capsular collection extends up to the left hemidiaphragm, similar to the previous study. There is a persistent approximately 12.9 x 8.2 cm fluid collection with peripheral rim enhancement seen extending from the superior margin of the spleen to the left lobe of the liver in the gastrohepatic ligament, also unchanged. Accessory splenule is seen along the inferior margin of the spleen. ADRENAL GLANDS AND KIDNEYS: Adrenal glands normal. Kidneys bilaterally symmetric in size and function. No focal mass, hydronephrosis, nephrolithiasis or perinephric stranding. URETERS AND BLADDER: Ureters decompressed and within normal limits. Bladder decompressed, likely accounting for the diffusely thick-walled appearance. PELVIC ORGANS: Unremarkable. GASTROINTESTINAL TRACT: Postoperative changes are seen with multiple lee seen in the rectosigmoid region status post low anterior resection. A right lower quadrant ileostomy is noted. There is a right lower quadrant drainage catheter in place, extending down into the pelvis with tip located near the surgical anastomosis in the rectosigmoid region. No significant surrounding focal fluid collection is seen. Small and large bowel loops decompressed. Appendix is not seen. ABDOMINAL WALL: Postoperative changes are seen in the anterior abdominal wall. Tiny air locules are seen in region of the anterior rectus muscles (example series 2, image 83), consistent with postoperative change. LYMPHOVASCULAR STRUCTURES: Abdominal aorta normal in caliber. No periaortic collections. No abdominal or pelvic adenopathy or free fluid collection. BONES: There is multilevel mild vertebral spondylosis in the lower thoracic and in the lumbar spine. No suspicious bone findings noted. IMPRESSION: 1. Interval slight decrease in size of the left-sided pleural effusion is seen status post thoracentesis. No significant change in associated left lower lobe consolidation. 2. Small amount of subsegmental atelectasis in the medial right lower lobe is also noted, similar to prior exam. 3. There is reaccumulation of the recently drained perisplenic/subcapsular fluid collection with overall size appearing similar to the predrainage films. Several locules of air are seen within the collection as well as free air is noted in the abdomen, all presumably related to recent drainage and recent operative procedure. 4. No significant change in size of the peripherally rim-enhancing mid anterior abdominal collection, extending from the spleen to the liver in region of the gastrosplenic ligament. 5. Diffuse hepatic steatosis with small low-attenuation masses in the right and left lobes of the liver, unchanged, possibly small cysts. 6. Stable postoperative changes are seen in the abdomen status post low anterior resection.
[2017-09-15 15:04] VITALS: BP 140/68
[2017-09-15 16:45] VITALS: BP 148/82
--- NOTE | 2017-09-15 17:55 | ULTRASOUND REPORT ---
CLINICAL HISTORY: This patient is a 52 year old male with perisplenic abscess, who presents to Interventional Radiology for drainage catheter placement. PROCEDURE: 1. Limited left upper quadrant ultrasound. 2. Ultrasound-guided placement of a 8.5 Prydeinig drainage catheter into the perisplenic collection. PHYSICIANS: Dr. Marko Tinsley (attending). MONITORING: The procedure was performed with intravenous analgesia under my direct supervision. Continuous blood pressure, pulse oximetry as well as heartrate monitoring was performed by an independent registered nurse. MEDICATIONS: 1. Fentanyl 50 mcg IV were administered. 2. Lidocaine 1%, 20 mL, SQ. COMPLICATIONS: None ESTIMATED BLOOD LOSS: <5 mL SPECIMENS: None IMPLANT: None SITE MARKING: As part of the preprocedure verification policy, a site marking procedure was initiated. Due to the nature the procedure, the insertion site could not be predetermined thus invoking the policy of exemption to site laterality and marking. Insertion site marking was performed in the procedure room in conjunction with imaging confirmation. PROCEDURE NOTE: Informed consent was obtained from the patient prior to the procedure. During this process, the procedure and potential alternatives were explained along with the intended outcome and benefits. The risks of the procedure, including the possibility of an unsuccessful procedure, as well as the risk of not doing the procedure, were discussed. The patient was given the opportunity to ask questions regarding the procedure and appeared competent to make decisions. A signed consent form documenting this discussion was placed in the medical record. The patient was placed supine on the US table. A time-out procedure was performed. Ultrasound evaluation of the left upper quadrant was performed. A safe standard percutaneous approach was identified into the perisplenic collection via an intercostal approach in the lateral upper abdomen. A septated perisplenic collection was identified. The left upper quadrant was prepped and draped in usual sterile fashion. All elements of maximal sterile barrier technique followed including use of cap, mask, sterile gown, sterile gloves, a sterile full body drape and hand hygiene. Also followed skin preparation with 2% chlorhexidine for cutaneous antisepsis, and sterile ultrasound preparation with sterile gel and probe cover when applicable. 20 mL of 1% lidocaine was used to obtain local anesthesia of the skin and deeper tissues. Using standard interventional and sterile technique as well as real-time ultrasound guidance an 8.5 Fr pigtail catheter was introduced through the skin into the perisplenic collection. Ultrasound confirmed the course of the trocar needle introduction. Approximately 100 mL of turbid brown fluid was drained. The catheter was hooked up to external gravity drainage. The catheter was secured into position with a 2-0 silk suture and a StatLock device. Orders were written to the chart. The patient tolerated the procedure well. FINDINGS: 1. Limited ultrasound of the abdomen demonstrated a recurrent perisplenic multiseptated collection. 2. Successful ultrasound-guided 8.5 Prydeinig pigtail drainage catheter placement into the perisplenic collection. IMPRESSION: Successful ultrasound-guided drainage catheter placement in the perisplenic collection. PLAN: 1. The patient was stable after the procedure and was transferred to the interventional recovery area. The patient will be transferred back to his medical room. 2. The tube should be open to external gravity drainage via drainage bag. 3. The tube should be flushed twice daily with 10 mL normal saline.
[2017-09-15 20:01] VITALS: BP 130/72
[2017-09-16] VITALS (8 sets, daily range): BP systolic 140–156; BP diastolic 70–78
--- NOTE | 2017-09-16 08:24 | PN- General Surgery ---
Surgical Brief Attending Note Brief Attending Note: Patient continues to look well Status post repeat percutaneous drainage of justo-splenic fossa Drain this morning appears yellow turbid Antibiotics have been changed per ID Await a.m. CBC Await final culture and sensitivity from percutaneous The final position depend on results of these tests
[2017-09-16 09:42] LABS: ABSOLUTE BASOPHIL COUNT 0 /CUMM (0.0-0.2); ABSOLUTE EOSINOPHIL COUNT 0.1 /CUMM (0.0-0.7); ABSOLUTE GRANULOCYTE CT 15.8 /CUMM (1.4-6.5); ABSOLUTE LYMPH COUNT 0.9 /CUMM (1.2-3.4); ABSOLUTE MONOCYTE COUNT 1.7 /CUMM (0.10-0.60); BASOPHIL % 0.1 % (0.0-2.0); EOSINOPHIL % 0.5 % (0-5); GRANULOCYTE % 85.4 % (42.2-75.2); HEMATOCRIT 31.3 % (42-52); MEAN CORPUSCULAR HGB 32.8 PG (27.0-31.0); MEAN CORPUSCULAR HGB CONC 35.3 G/DL (33.0-37.0); MEAN CORPUSCULAR VOLUME 92.7 FL (80.0-94.0); MEAN PLATELET VOLUME 8.3 FL (7.4-10.4); PLATELET COUNT 428 /CUMM (130-400); RBC DISTRIBUTION WIDTH 15.2 % (11.5-14.5); RED BLOOD CELL CT 3.38 /CUMM (4.70-6.10); WHITE BLOOD CELL COUNT 18.5 /CUMM (4.8-10.8)
--- NOTE | 2017-09-16 11:37 | PN- Infect Dx ---
Subjective Subjective: Afebrile without complaints Objective Last 24 Hrs of Vital Signs/I&O Vital Signs Date Time Temp Pulse Resp B/P B/P Pulse O2 O2 Flow FiO2 Mean Ox Delivery Rate 09/16 0811 98.3 84 20 142/70 93 Room Air 09/16 0400 97.3 90 18 154/74 93 09/16 0200 98.3 82 16 150/70 94 Room Air 09/16 0001 98.3 90 18 156/78 93 09/15 2001 98.6 93 18 130/72 96 Room Air 09/15 1645 98.5 85 18 148/82 94 Room Air 09/15 1504 98.2 90 20 140/68 96 Room Air 09/15 1149 98.1 89 18 138/80 95 Room Air Intake & Output 09/16 1600 09/16 0800 09/16 0000 Intake Total 510 820 Output Total 670 728 Balance -160 92 Intake, IV 150 20 Intake, Oral 360 800 Output, 70 178 Drainage Output, Stool 150 100 Output, Urine 450 450 Physical Exam Other Physical Findings: He appears comfortable in no acute distress Lungs decreased breath sounds at the left base Heart regular rhythm with no murmur Abdomen is soft, nontender with positive bowel sounds; left upper quadrant/flank catheter in place, with 40 mL output yesterday; 1 LUCIANO drain remains in place in the right lower quadrant; colostomy with stool Results Last 24 Hours of Lab Results: Laboratory Tests 09/16 08 Hematology CBC w Diff MAN DIFF ORDERED WBC (4.8 - 10.8 /CUMM) 18.5 H RBC (4.70 - 6.10 /CUMM) 3.38 L Hgb (14.0 - 18.0 G/DL) 11.1 L Hct (42 - 52 %) 31.3 L MCV (80.0 - 94.0 FL) 92.7 MCH (27.0 - 31.0 PG) 32.8 H MCHC (33.0 - 37.0 G/DL) 35.3 RDW (11.5 - 14.5 %) 15.2 H Plt Count (130 - 400 /CUMM) 428 H MPV (7.4 - 10.4 FL) 8.3 Gran % (42.2 - 75.2 %) 85.4 H Lymphocytes % (20.5 - 51.1 %) 4.9 L Monocytes % (1.7 - 9.3 %) 9.1 Eosinophils % (0 - 5 %) 0.5 Basophils % (0.0 - 2.0 %) 0.1 Absolute Granulocytes (1.4 - 6.5 /CUMM) 15.8 H Segmented Neutrophils (42.2 - 75.2 %) 72 Band Neutrophils (0.0 - 5.0 %) 9 H Absolute Lymphocytes (1.2 - 3.4 /CUMM) 0.9 L Lymphocytes (20.5 - 51.1 %) 9 L Monocytes (1.7 - 9.3 %) 6 Absolute Monocytes (0.10 - 0.60 /CUMM) 1.7 H Absolute Eosinophils (0.0 - 0.7 /CUMM) 0.1 Absolute Basophils (0.0 - 0.2 /CUMM) 0 Metamyelocytes (0.0 - 1.0 %) 3 H Myelocytes (0 - 0 %) 1 H Platelet Estimate (ADEQUATE) ADEQUATE Hypochromic-Microcytic 1+ Anisocytosis 1+ Last 24 Hours of Renato Results: Perisplenic fluid culture September 13 positive for Escherichia coli sensitive to Ceftazidime, Ceftriaxone, Ciprofloxacin and Meropenem Left pleural fluid culture September 13 negative Blood cultures September 11 negative Recent Imaging Studies: CT of the abdomen and pelvis September 15 revealed a reaccumulation of the perisplenic fluid collection with the overall size similar to the pre-drainage films; several locules of air within the collection as well as free air within the abdomen; a persistent 12.9 x 8.2 cm fluid collection with peripheral rim enhancement is seen, extending from the superior margin of the spleen to the left lobe of the liver in the gastrohepatic ligament, unchanged from the previous study; small gallstone in the gallbladder neck region, nonobstructing; interval decrease in size of the left pleural effusion Assessment/Plan ID Impression: Remains stable, with temperatures normal and with his white blood cell count decreasing, now on Meropenem, status post repeat drainage yesterday of the perisplenic collection, with removal of 100 mL of turbid brown fluid, now 11 days status post exploratory laparotomy and washout of the abdominal cavity with a divertng loop ileostomy for an anastomotic leak 2 days following a 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 It is not clear if this recurrent collection represents residual fluid not drained during his initial procedure 2 days earlier or if he has a continued leak. The culture of this fluid has grown Escherichia coli, sensitive to Ceftriaxone, and this can be restarted, along with the Flagyl (for possible anaerobes). The peripheral rim- enhancing mid anterior abdominal collection noted on the CT scan reported yesterday was reviewed with IR and is felt to connect with the perisplenic collection. Suggestion: 1. Continue close monitoring of his catheter output and white blood cell count 2. Will need to reimage once his drainage stops 3. Discontinue Meropenem 4. Restart Ceftriaxone 1 g IV every 24 hours and Flagyl 500 mg IV every 8 hours
[2017-09-17] VITALS: BP 150/80
[2017-09-17 04:00] VITALS: BP 158/82
[2017-09-17 07:36] LABS: ABSOLUTE BASOPHIL COUNT 0 /CUMM (0.0-0.2); ABSOLUTE EOSINOPHIL COUNT 0.1 /CUMM (0.0-0.7); ABSOLUTE LYMPH COUNT 1.3 /CUMM (1.2-3.4); ABSOLUTE MONOCYTE COUNT 1.8 /CUMM (0.10-0.60); BASOPHIL % 0.1 % (0.0-2.0); EOSINOPHIL % 0.7 % (0-5); GRANULOCYTE % 80.3 % (42.2-75.2); HEMATOCRIT 31.2 % (42-52); MEAN CORPUSCULAR HGB 32.2 PG (27.0-31.0); MEAN CORPUSCULAR HGB CONC 34.5 G/DL (33.0-37.0); MEAN CORPUSCULAR VOLUME 93.5 FL (80.0-94.0); MEAN PLATELET VOLUME 8.1 FL (7.4-10.4); PLATELET COUNT 475 /CUMM (130-400); RED BLOOD CELL CT 3.34 /CUMM (4.70-6.10); WHITE BLOOD CELL COUNT 16.2 /CUMM (4.8-10.8)
--- NOTE | 2017-09-17 07:46 | PN- General Surgery ---
See Addendum Subjective Subjective: Patient states he feels well. Reports pain in the right side of his abdomen which is controlled with percocet. Tolerating a low resdiue diet, without nausea or vomiting. States his wound vac was changed . Abx changed from meropenem to rocephin/flagyl yesterday. He states his justo-splenic catheter drainage is clearing up. He reports ambulating in the halls. Offers no other complaints. Objective Vital Signs and I&Os Vital Signs Date Time Temp Pulse Resp B/P B/P Pulse O2 O2 Flow FiO2 Mean Ox Delivery Rate 09/17 0400 98.2 88 18 158/82 95 09/17 0000 97.6 86 18 150/80 93 09/16 2000 97.8 90 18 140/70 92 Room Air 09/16 1600 98.0 90 18 140/76 95 Room Air 09/16 1132 98.3 86 16 150/70 93 Room Air 09/16 0811 98.3 84 20 142/70 93 Room Air Intake & Output 09/17 0800 09/17 0000 09/16 1600 09/16 0800 09/16 0000 09/15 1600 Intake Total 130 950 510 820 900 Output Total 1994 485 6188 511 024 7496 Balance -1040 -750 -120 -160 92 -302 Intake, IV 130 50 150 20 100 Intake, Oral 900 360 800 800 Output, 70 0 20 70 178 2 Drainage Output, Stool 100 200 350 150 100 300 Output, Urine 1000 550 700 450 450 900 Physical Exam: Gen - resting comfortably in a chair in nad Cardiac - S1S21 noted, RRR Lungs - CTAB Abd - soft, mild distended, LUCIANO drain with scant drainage, stripped to patency, justo-splenic drain with serous drainage, wound vac in place to suction, bowel sounds hypoactive, appropriately tender justo-incisionally, no rebound or guarding noted Ext - no edema or calf tendeness Assessment/Plan Assessment/Plan 52 M with a h/o DM II and HLD who is POD 14 s/p robotic LAR due to rectal polyp complicated by anastamotic, now POD 12 s/p ex lap with diverting loop ileostomy, PPD 4 s/p thoracentesis, abdominal aspiration and PPD 2 s/p percutanous drainage of perisplenic IR drainage with final cultures growing e.coli who is recovering well, leukocytosis improving Cont low residue diet Pain regimen Cont IV rocephin/flagyl, will d/w ID regarding transitioning to po prior to d/c Continue immodium Continue wound vac ? remove LUCIANO drain Keep cooks pouch in place to gravity Encourage ambulation, IS use Follow up labs Anticipate d/c within 24-48 hours Will d/w Dr. Howe Core Measures Venous Thromboembolism VTE Risk Factors Surgery (A) No Mechanical VTE Prophylaxis d/t N/A MechProphylax Ordered No VTE Pharm Prophylaxis d/t NA PharmProphylax ordered
[2017-09-17 08:22] VITALS: BP 130/74
--- NOTE | 2017-09-17 11:04 | PN- Infect Dx ---
Subjective Subjective: Afebrile without any new complaints. He notes mild discomfort in the right lower quadrant around the colostomy. Objective Last 24 Hrs of Vital Signs/I&O Vital Signs Date Time Temp Pulse Resp B/P B/P Pulse O2 O2 Flow FiO2 Mean Ox Delivery Rate 09/17 0822 97.9 94 20 130/74 95 Room Air 09/17 0400 98.2 88 18 158/82 95 09/17 0000 97.6 86 18 150/80 93 09/16 2000 97.8 90 18 140/70 92 Room Air 09/16 1600 98.0 90 18 140/76 95 Room Air 09/16 1132 98.3 86 16 150/70 93 Room Air Intake & Output 09/17 1600 09/17 0800 09/17 0000 Intake Total 130 Output Total 1170 750 Balance -1040 -750 Intake, IV 130 Output, 70 0 Drainage Output, Stool 100 200 Output, Urine 1000 550 Physical Exam Other Physical Findings: He appears comfortable in no acute distress Lungs decreased breath sounds at the left base Heart regular rhythm without murmur Abdomen is mildly distended, mildly tender over the right lower quadrant around the colostomy, with one LUCIANO drain still in place; left upper quadrant/flank catheter in place, with 55 cc output yesterday and 20 cc overnight Extremities no cyanosis, clubbing or edema Results Last 24 Hours of Lab Results: Laboratory Tests 09/17 0655 Chemistry Sodium (137 - 145 mmol/L) 134 L Potassium (3.5 - 5.1 mmol/L) 4.8 Chloride (98 - 107 mmol/L) 99 Carbon Dioxide (22 - 30 mmol/L) 26 Anion Gap (5 - 16) 10 BUN (9 - 20 mg/dL) 11 Creatinine (0.7 - 1.2 mg/dL) 0.6 L Estimated GFR (>60 ml/min) > 60 BUN/Creatinine Ratio (7 - 25 %) 18.3 Hematology CBC w Diff MAN DIFF ORDERED WBC (4.8 - 10.8 /CUMM) 16.2 H RBC (4.70 - 6.10 /CUMM) 3.34 L Hgb (14.0 - 18.0 G/DL) 10.8 L Hct (42 - 52 %) 31.2 L MCV (80.0 - 94.0 FL) 93.5 MCH (27.0 - 31.0 PG) 32.2 H MCHC (33.0 - 37.0 G/DL) 34.5 RDW (11.5 - 14.5 %) 15.0 H Plt Count (130 - 400 /CUMM) 475 H MPV (7.4 - 10.4 FL) 8.1 Gran % (42.2 - 75.2 %) 80.3 H Lymphocytes % (20.5 - 51.1 %) 8.1 L Monocytes % (1.7 - 9.3 %) 10.8 H Eosinophils % (0 - 5 %) 0.7 Basophils % (0.0 - 2.0 %) 0.1 Absolute Granulocytes (1.4 - 6.5 /CUMM) 13.0 H Segmented Neutrophils (42.2 - 75.2 %) 69 Band Neutrophils (0.0 - 5.0 %) 6 H Absolute Lymphocytes (1.2 - 3.4 /CUMM) 1.3 Lymphocytes (20.5 - 51.1 %) 9 L Monocytes (1.7 - 9.3 %) 12 H Absolute Monocytes (0.10 - 0.60 /CUMM) 1.8 H Absolute Eosinophils (0.0 - 0.7 /CUMM) 0.1 Absolute Basophils (0.0 - 0.2 /CUMM) 0 Metamyelocytes (0.0 - 1.0 %) 2 H Myelocytes (0 - 0 %) 2 H Platelet Estimate (ADEQUATE) INCREASED Polychromasia 1+ Hypochromic-Microcytic 1+ Anisocytosis 1+ Last 24 Hours of Renato Results: No new cultures Assessment/Plan ID Impression: Continues to improve, with temperatures remaining normal and with his white blood cell count continuing to decrease, now back on Ceftriaxone and Flagyl, 2 days status post repeat drainage of the recurrent perisplenic collection, with removal of 100 mL of turbid brown fluid, which grew E. 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 Suggestion: 1. Continue close monitoring of his catheter output, with a repeat CT of the abdomen and pelvis when the drainage has decreased to less than 15 cc today 2. Continue flushing of the catheter per IR 3. Continue Ceftriaxone and Flagyl, but, if he is discharged before the catheter is removed, he can be changed to Ciprofloxacin 500 mg p.o. every 12 hours and Flagyl 500 mg p.o. every 8 hours
[2017-09-17 11:27] VITALS: BP 120/72
[2017-09-17] MEDS ORDERED: FLAGYL500 MG PO (12:59)
[2017-09-17] MEDS ORDERED: PERCOCET 5-3251 EACH PO (12:59)
[2017-09-17] MEDS ORDERED: CIPRO500 M1 PO (12:59)
[2017-12-02] MEDS ORDERED: LOMOTIL 2.5-0.1 EACH PO (09:20)
== END 2017-09-17 16:56 | disposition home health service (06) | DRG 330 ==
LOC: SDA 03:23 → EDSTATUS 07:00 → SDA 07:00 → STS 07:00 → ENRESERV 17:32 → ENTRNSPT 18:40 → EDTRNSPTSTS 18:46 → EDTRNSPT 18:46 → CMPTRNSPT 18:54 → 2NB 18:55 → ENTRNSPT 09-05 21:11 → CMPTRNSPT 09-05 21:37 → 2NB 09-05 22:30
PROVIDERS: Colon & Rectal Surgery; Nurse Practitioner; Physician Assistant; Physician Assistant Surgical
PROC: 0D1K0ZP Bypass Ascending Colon to Rectum, Open Approach (ICD-10-PCS; 2017-09-03)
PROC: 0WJG0ZZ Inspection of Peritoneal Cavity, Open Approach (ICD-10-PCS; 2017-09-03)
PROC: 0D1B0Z4 Bypass Ileum to Cutaneous, Open Approach (ICD-10-PCS; 2017-09-03)
PROC: 8E0W0CZ Robotic Assisted Procedure of Trunk Region, Open Approach (ICD-10-PCS; 2017-09-03)
PROC: 3E0T3BZ Introduction of Anesthetic Agent into Peripheral Nerves and Plexi, Percutaneous Approach (ICD-10-PCS; 2017-09-03)
PROC: 0DJD8ZZ Inspection of Lower Intestinal Tract, Via Natural or Artificial Opening Endoscopic (ICD-10-PCS; 2017-09-05)
PROC: 0J9C00Z Drainage of Pelvic Region Subcutaneous Tissue and Fascia with Drainage Device, Open Approach (ICD-10-PCS; 2017-09-05)
PROC: 3E0T3BZ Introduction of Anesthetic Agent into Peripheral Nerves and Plexi, Percutaneous Approach (ICD-10-PCS; 2017-09-05)
PROC: 2W13X6Z Compression of Abdominal Wall using Pressure Dressing (ICD-10-PCS; principal; 2017-09-08)
PROC: 0W9B3ZX Drainage of Left Pleural Cavity, Percutaneous Approach, Diagnostic (ICD-10-PCS; 2017-09-13)
PROC: 079P3ZX Drainage of Spleen, Percutaneous Approach, Diagnostic (ICD-10-PCS; 2017-09-13)
PROC: 079P30Z Drainage of Spleen with Drainage Device, Percutaneous Approach (ICD-10-PCS; 2017-09-15)
DX: C18.7 Malignant neoplasm of sigmoid colon (principal); J90 Pleural effusion, not elsewhere classified; D72.829 Elevated white blood cell count, unspecified; E11.9 Type 2 diabetes mellitus without complications; E78.5 Hyperlipidemia, unspecified; B96.20 Unspecified Escherichia coli [E. coli] as the cause of diseases classified elsewhere; T82.338A Leakage of other vascular grafts, initial encounter; I10 Essential (primary) hypertension; Z79.84 Long term (current) use of oral hypoglycemic drugs; R00.0 Tachycardia, unspecified; R14.0 Abdominal distension (gaseous); Y83.2 Surgical operation with anastomosis, bypass or graft as the cause of abnormal reaction of the patient, or of later complication, without mention of misadventure at the time of the procedure; Y92.239 Unspecified place in hospital as the place of occurrence of the external cause
CPT/HCPCS: 2NBP; 2NBSP; 87075; 36415; 36592; 71045; 71046; 74021; 74177; 81001; 82436; 87040; 87086; 88309; C1769; C9290; J0131; J0690; J0696; J1644; J1815; J2001; J2185; J2405; J3490; J7042; Q9965

== ENCOUNTER 2017-12-07 02:02 | Inpatient (IN) | payer OTHER ==
[~2017-12-07] VITALS: Ht 185.4 cm; Wt 90.3 kg
[~2017-12-07 02:02] MED LIST changes: +CIPRO500 M1 PO; +FLAGYL500 MG PO; +LOMOTIL 2.5-0.1 EACH PO; +LOPERAMIDE2 M2 PO; +PERCOCET 5-3251 EACH PO
--- NOTE | 2017-12-07 15:21 | Operative Report ---
Operative/Inv Procedure Report Surgery Date: 12/07/17 Name of Procedure: Ileostomy reversal with partial bowel resection Pre-Operative Diagnosis: 1.Ileostomy status 2.Status post low anterior resection for rectal neoplasm Post-Operative Diagnosis: Same Estimated Blood Loss: less than 50ml Surgeon/Clinical Documentation Specialist: Jeremy Howe Jr., DO Anesthesia: general endotracheal tube, block Monitors: Per routine Drains: LUCIANO drain in subcutaneous Specimens: Ileostomy Complications: None Condition: Good Operative Indication: Is a 52-year-old gentleman, has post low anterior resection for a rectosigmoid neoplasm. His postoperative course was complicated by anastomotic leak. He returned to the operating room for washout , drainage and diversion. He has now completely recovered. He is colorectal anastomosis has been evaluated by both flex sigmoidoscopy and Gastrografin enema and appears completely healed without evidence of persistent leak. He presents today for reversal of ileostomy Operative/Procedure Note Note: On the day before his urge reached the did the bowel in the form of clear liquid diet and oral antibiotics. 3 hours before his scheduled surgery during to lots of apple juice. In the holding area he was given the ERAS premedications. Was taken to the operating room placed in supine position on the operating table. He underwent induction of general anesthesia placement of endotracheal tube. He received IV antibiotics and underwent a tap block bilaterally performed by anesthesia team. The abdomen was prepped and draped in usual fashion. A transverse elliptical incision was carried out around the stoma and taken down to the fascia. The bowel was from the fascia partly by sharp dissection and partly bilateral cautery. I was able to pull a nurse amount of terminal ileum up through the incision. At this point I prepared to resect the distal end of the ileostomy. Mesenteric window was made and CORINNA stapler were used used to divide the bowel on both sides of the loop. The specimen was removed from the field and sent as ileostomy. Next 2 enterotomies were intentionally created by excising the corners of the staple line. A GIA80 mm blue stapler was chosen for the anastomosis. One arm of the stapling device was placed on each limb of the bowel. The stapler was closed. A inspected to make sure the mesentery was not pinched. The stapler was fired. Stapler was opened and removed. The lumen of the staple line was inspected. There was one bleeding site was oversewn with an interrupted 3-0 Vicryl suture. The open edges of the enterotomy were approximated with Allis clamps. A TA 60 stapler was used to seal the enterotomy and a small ring of tissue was excised. There were a few bleeding points on the staple line which were oversewn with interrupted 3-0 Vicryl suture. The bowel was reduced back into the abdominal cavity. The fascial edges were roughed up with the cautery there was no significant hernia sac to excise. The fascia was closed in an up- and-down fashion with 0 non-looped PDS. The incision was then pulse lavaged with sterile saline. A LUCIANO drain was placed external to the fascia in the subcutaneous space pulled out through a separate stab wound incision. LUCIANO drain was secured to the skin with nylon suture. The skin was then closed with interrupted nylon suture in a mattress fashion. At this point the procedure was concluded. The abdomen was cleansed and dried. Bacitracin ointment and a sterile dressing and drain sponge were applied. The patient tolerated the procedure well and was extubated in the operating room and taken to recovery area in good condition. The end of this operational needle sponges and measurements were accounted for. Discharge Disposition: Same Day Admissions
--- NOTE | 2017-12-07 15:41 | Patient Discharge Instructions ---
Discharge Instructions General Discharge Information You were seen/treated for: Rectosigmoid Adenoma You had these procedures: Ileostomy Reversal Watch for these problems: Bleeding, infection, fevers, chills, cough, chest pain, shortness of breath, redness/swelling/unusual drainage from incisions, or any other problems, questions or concerns Call Surgeon to remove: Stitches, Other (Drain) Do not soak the wound: Yes Daily wet to dry dressings: No No bath, but you may shower: Yes Other wound care: May leave open to air if no drainage Diet Continue normal diet: Yes Recommended Diet: Low Residue Activity Full Activity/No Limits: No Activity Self Limited: Yes Pounds, do NOT lift more than: 10 (x 2 weeks) Acute Coronary Syndrome Inclusion Criteria At DC or during hospital stay patient has or had the following: ACS DIAGNOSIS No Discharge Core Measures Meds if any: Prescribed or Continued at Discharge Meds if any: NOT Prescribed or Continued at Discharge Congestive Heart Failure Inclusion Criteria At DC or during hospital stay patient has or had the following: CHF DIAGNOSIS No Discharge Core Measures Meds if any: Prescribed or Continued at Discharge Meds if any: NOT Prescribed or Continued at Discharge Cerebrovascular accident Inclusion Criteria At DC or during hospital stay patient has or had the following: CVA/TIA Diagnosis No Discharge Core Measures Meds if any: Prescribed or Continued at Discharge Meds if any: NOT Prescribed or Continued at Discharge Venous thromboembolism Inclusion Criteria VTE Diagnosis No VTE Type NONE VTE Confirmed by (Test) NONE Discharge Core Measures - Per Current guidelines, there needs to be overlap - treatment for the first 5 days of Warfarin therapy. - If discharged on Warfarin prior to 5 days of - overlap therapy, the patient will need to be - assessed for post discharge needs including - *Post discharge parental anticoagulation - *Warfarin and/or parental anticoagulation education - *Follow up date to check INR post discharge At least 5 days overlap therapy as Inpatient No Meds if any: Prescribed or Continued at Discharge Note: Overlap Therapy is Warfarin and Anticoagulant Meds if any: NOT Prescribed or Continued at Discharge
--- NOTE | 2017-12-07 15:42 | Admission Core Measures ---
Acute Coronary Syndrome (CM) ACS Core Measures Acute Coronary Syndrome Diagnosis No Congestive Heart Failure (NEW) CHF Core Measures Congestive Heart Failure Diagnosis No Cerebrovascular Accident CVA Core Measures CVA/TIA Diagnosis No Venous Thromboembolism VTE Core Ebenezer (View Protocol) VTE Risk Factors Surgery No Mechanical VTE Prophylaxis d/t N/A MechProphylax Ordered No VTE Pharm Prophylaxis d/t NA PharmProphylax ordered Problem List As ranked by this Provider includes Assessment & Plan 1. Adenoma of rectum 2. Status post reversal of ileostomy HOME MEDS Home Med List Atorvastatin Calcium (Lipitor) 20 MG TABLET 1 TAB PO DAILY CHOL (Reported) Diphenoxylate HCl/Atropine (Lomotil 2.5-0.025 MG Tablet) 2.5 MG-0.025 MG TABLET 1 TAB PO TID ILEOSTOMY (Reported) Metformin HCl (Glucophage) 1,000 MG TABLET 1 TAB PO BID DIABETES (Reported)
--- NOTE | 2017-12-07 15:56 | Surgical Discharge Summary ---
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 Spouse Services at Home: None What is Your Primary Language? Bengali Review of Systems: as per [facility] Hospital Course Course Attending Physician: Jeremy Howe Jr., DO Primary Care Physician: James HOUSE,[facility] Course: This is a 52 yo male who presented electively for ileostomy reversal on 12/07/17 secondary to Rectosigmoid Cancer. Patient tolerated the procedure well. Postoperative course was uncomplicated. He was initiated on clears postoperatively and then in a stepwise fashion as bowel function returned. He was maintained with a avery catheter for one day post operatively and had a successful voiding trial. A right mid-lower quadrant LUCIANO was monitored for quality and quantity of output and kept to bulb suction. While hospitalized he was on our ERAS protocol which he did well with. By time of discharge patient was ambulating, voiding, tolerating a regular diet, pain was well controlled with oral analgesia, and he had return of bowel function via. Plan is for the patient to follow up with Dr. Howe in 1-2 weeks. Hr was instructed to call sooner with any other problems, questions or concerns. Complications: None Allergies: Coded Allergies: No Known Allergies (12/02/17) Significant Procedures: Ileostomy Reveral 12/07/17 Disposition Summary Disposition Principal Diagnosis: Rectosigmoid Cancer Discharge Disposition: home or self care Discharge Instructions General Discharge Information Code Status: Full Code Patient's Diet: Regular low residue Patient's Activity: as tolrated Follow-Up Instructions/Appts: Please see printout Medications at Discharge Discharge Medications: Stop taking the following medications: Diphenoxylate HCl/Atropine (Lomotil 2.5-0.025 MG Tablet) 2.5 MG-0.025 MG TABLET ORAL THREE TIMES DAILY Continue taking these medications: Atorvastatin Calcium (Lipitor) 20 MG TABLET 1 Tablet ORAL DAILY Comments: NOT GIVEN WHILE IN HOSPITAL Metformin HCl (Glucophage) 1,000 MG TABLET 1 Tablet ORAL TWICE DAILY Comments: NOT GIVEN WHILE IN HOSPITAL Copies To: Jeremy Howe Jr., DO
--- NOTE | 2017-12-07 16:54 | PN- General Surgery ---
Subjective Subjective: POST-OP CHECK pt in bed, minimal pain. tolerating few ice chips. no nausea has not been OOB yet Denies cp/sob Objective Vital Signs and I&Os vss afebrile Physical Exam: vss afebrile gen-NAD resp- clear cardiac- RRR abd- flat, soft, nontender ext- no calf tenderness, no pedal edema Current Medications: Current Medications Sig/Milton Start time Last Medication Dose Route Stop Time Status Admin Acetaminophen 1,000 MG TID 12/07 1515 UNVr PO Acetaminophen 1,000 MG ONCE ONE 12/07 729 DC PO 12/07 07 Alvimopan 12 MG ONCE ONE 12/07 729 DC PO 12/07 07 Atorvastatin Calcium 20 MG 1700 12/07 1700 UNVr PO Diphenhydramine HCl 50 MG Q6P PRN 12/07 1530 UNVr IV Gabapentin 200 MG Q8 12/07 1516 UNVr PO Gabapentin 600 MG ONCE ONE 12/07 729 DC PO 12/07 07 Heparin Sodium 5,000 UNIT Q8 12/07 2200 UNVr (Porcine) SC Lactated Ringer's 1,000 ML Q13H 12/07 1530 UNVr IV Metformin HCl 1,000 MG 0800,1700 12/08 1700 UNVr PO Morphine Sulfate 2 MG Q3P PRN 12/07 1530 UNVr IV Morphine Sulfate 4 MG Q3P PRN 12/07 1530 UNVr IV Non-Formulary 0 SEE ADMIN CRITERIA 12/07 1530 UNVr Medication ANY Ondansetron HCl 4 MG Q6P PRN 12/07 1530 UNVr IV Oxycodone HCl 5 MG Q4-6 PRN PRN 12/07 1530 UNVr PO Oxycodone HCl 10 MG Q4-6 PRN PRN 12/07 1530 UNVr PO Pantoprazole Sodium 40 MG DAILY 12/08 0900 UNVr IV Zolpidem Tartrate 10 MG AT BEDTIME NEED.. 12/07 1530 UNVr PO Assessment/Plan Assessment/Plan 52yo M SP ileostomy reversal POD0. stable on ERAS protocol entereg until BM clears tonight pain management- limit narcotics encourage IS and ambulation dvt ppx- hsq and alps dressing change POD2 Core Measures Venous Thromboembolism VTE Risk Factors Surgery No Mechanical VTE Prophylaxis d/t N/A MechProphylax Ordered No VTE Pharm Prophylaxis d/t NA PharmProphylax ordered
[2017-12-07 17:00] VITALS: BP 149/94
[2017-12-07 21:52] VITALS: BP 140/82
[2017-12-08 07:04] VITALS: BP 134/79
--- NOTE | 2017-12-08 07:25 | PN- General Surgery ---
See Addendum Subjective Subjective: pT IN BED, NO NASUEA, TOLERATING CLEARS. VOIDING. ABD PAIN 01/07. HAS NOT BEEN OOB YET. USING IS DENEIS FLATUS DENIES CP/SOB Objective Vital Signs and I&Os Vital Signs Date Time Temp Pulse Resp B/P B/P Pulse O2 O2 Flow FiO2 Mean Ox Delivery Rate 12/09 703 97.6 68 18 134/79 97 12/07 2152 97.4 71 20 140/82 97 Room Air 12/07 1700 97.4 66 16 149/94 94 Room Air Intake & Output 12/08 0800 12/08 0000 12/07 1600 12/07 0812/07 0000 12/06 1600 Intake Total 720 855 Output Total 610 215 Balance 110 640 Intake, IV 600 375 Intake, Oral 120 480 Number 1 Bowel Movements Output, 10 15 Drainage Output, Urine 600 200 Patient 199 lb Weight Weight Bed scale Measurement Method Physical Exam: GEN- NAD RESP- CLEAR CARDIAC-RRR ABD-ND, +BS, SOFT, NT. DRESSING CLKEAN AND DRY. LUCIANO IN PLACE WITH MINIMAL SEROUS DRAINAGE EXT-NO CALF TENDERNESS Current Medications: Current Medications Sig/Milton Start time Last Medication Dose Route Stop Time Status Admin Acetaminophen 1,000 MG TID 12/07 1515 AC 12/07 PO 2120 Acetaminophen 1,000 MG .STK-MED ONE 12/07 1301 DC IV 12/07 1302 Acetaminophen 1,000 MG ONCE ONE 12/07 0730 DC PO 12/07 0731 Alvimopan 12 MG BID 12/07 2100 AC 12/07 PO 2120 Alvimopan 12 MG ONCE ONE 12/07 0730 DC PO 12/07 0731 Atorvastatin Calcium 20 MG 1700 12/07 1700 AC 12/07 PO 1805 Diphenhydramine HCl 50 MG Q6P PRN 12/07 1530 AC IV Fentanyl Citrate 250 MCG .STK-MED ONE 12/07 1301 DC IM 12/07 1302 Gabapentin 200 MG Q8 12/07 1516 AC 12/08 PO 0528 Gabapentin 600 MG ONCE ONE 12/07 0730 DC PO 12/07 0731 Heparin Sodium 5,000 UNIT Q8 12/07 2200 AC 12/08 (Porcine) SC 0533 Hydromorphone HCl 2 MG .STK-MED ONE 12/07 1612 DC IM 12/07 1613 Hydromorphone HCl 2 MG .STK-MED ONE 12/07 1538 DC IM 12/07 1539 Insulin Aspart 0 TIDAC 12/08 0800 AC SC Insulin Aspart 0 AT BEDTIME 12/07 2345 AC SC Lactated Ringer's 1,000 ML Q13H 12/07 1530 DC 12/08 IV 0206 Metformin HCl 1,000 MG 0800,1700 12/08 1700 CAN PO Midazolam HCl 2 MG .STK-MED ONE 12/07 1301 DC IM 12/07 1302 Morphine Sulfate 2 MG Q3P PRN 12/08 0730 UNVr IV Morphine Sulfate 2 MG Q3P PRN 12/07 1530 DC IV Morphine Sulfate 4 MG Q3P PRN 12/07 1530 DC 12/08 IV 0206 Ondansetron HCl 4 MG Q6P PRN 12/07 1530 AC IV Oxycodone HCl 5 MG Q4-6 PRN PRN 12/07 1530 AC PO Oxycodone HCl 10 MG Q4-6 PRN PRN 12/07 1530 AC 12/07 PO 1955 Pantoprazole Sodium 40 MG DAILY 12/08 0900 AC IV Zolpidem Tartrate 10 MG AT BEDTIME NEED.. 12/07 1530 AC PO Results Last 48 Hours of Labs: Laboratory Tests 12/08 0600 Chemistry Sodium Pending Potassium Pending Chloride Pending Carbon Dioxide Pending Anion Gap Pending BUN Pending Creatinine Pending BUN/Creatinine Ratio Pending Hematology CBC w Diff Pending WBC Pending RBC Pending Hgb Pending Hct Pending MCV Pending MCH Pending MCHC Pending RDW Pending Plt Count Pending MPV Pending Assessment/Plan Assessment/Plan 52yo M SP ileostomy reversal POD1. stable on ERAS protocol entereg until BM ADVANCE TO FULLS pain management- limit narcotics encourage IS and ambulation dvt ppx- hsq and alps dressing change POD2 Core Measures Venous Thromboembolism VTE Risk Factors Surgery No Mechanical VTE Prophylaxis d/t N/A MechProphylax Ordered No VTE Pharm Prophylaxis d/t NA PharmProphylax ordered
[2017-12-08 08:36] LABS: ABSOLUTE BASOPHIL COUNT 0 /CUMM (0.0-0.2); ABSOLUTE EOSINOPHIL COUNT 0 /CUMM (0.0-0.7); ABSOLUTE MONOCYTE COUNT 0.8 /CUMM (0.10-0.60); BASOPHIL % 0 % (0.0-2.0); EOSINOPHIL % 0.1 % (0-5); HEMATOCRIT 35.9 % (42-52); MEAN CORPUSCULAR HGB 29.7 PG (27.0-31.0); MEAN CORPUSCULAR HGB CONC 33.6 G/DL (33.0-37.0); MEAN CORPUSCULAR VOLUME 88.4 FL (80.0-94.0); MEAN PLATELET VOLUME 10.4 FL (7.4-10.4); PLATELET COUNT 269 /CUMM (130-400); RBC DISTRIBUTION WIDTH 15.4 % (11.5-14.5); RED BLOOD CELL CT 4.06 /CUMM (4.70-6.10)
[2017-12-08 09:02] LABS: GRANULOCYTE % 85.8 % (42.2-75.2)
[2017-12-08 09:14] LABS: WHITE BLOOD CELL COUNT 12.8 /CUMM (4.8-10.8)
[2017-12-08 14:48] VITALS: BP 140/84
[2017-12-08 21:09] VITALS: BP 147/87
[2017-12-09 06:22] VITALS: BP 148/96
--- NOTE | 2017-12-09 07:34 | PN- General Surgery ---
Subjective Subjective: Patient reports postop incisional pain, which is well controlled. He is tolerated fulls without nausea vomiting or belching. He reports episodes of bloody bms yesterday. He continues to pass flatus. He is ambulating frequently and hungry Objective Vital Signs and I&Os Vital Signs Date Time Temp Pulse Resp B/P B/P Pulse O2 O2 Flow FiO2 Mean Ox Delivery Rate 12/09 0622 97.8 87 18 148/96 97 12/08 2109 97.5 70 20 147/87 97 Room Air 12/08 1448 97.7 78 20 140/84 97 Room Air 12/08 1218 Room Air 12/08 0800 Room Air Intake & Output 12/09 0800 12/09 0000 12/08 1600 12/08 0800 12/08 0000 12/07 1600 Intake Total 040 216 2317 720 855 Output Total 1010 1925 1110 610 215 [facility] -770 -1685 -94 110 640 Intake, IV 75 600 375 Intake, Oral 240 240 941 120 480 Number 1 1 Bowel Movements Output, 10 10 10 15 Drainage Output, Stool 200 Output, Urine 1000 1725 1100 600 200 Patient 199 lb Weight Weight Bed scale Measurement Method Physical Exam: Gen - resting comfortably accompained by in nad Cardiac - S1S2 noted, RRR Lungs - CTAB Abd - soft, well healed midline incision, former ostomy incision closed with sutures, with no signs of infection or active drainage, bud to suction with 10 cc serosang drainage in last shift, appropriately tender justo-incisionally, no rebound or guarding Ext - no edema or calf tenderness B/L Current Medications: Current Medications Sig/Milton Start time Last Medication Dose Route Stop Time Status Admin Acetaminophen 1,000 MG .STK-MED ONE 12/08 2028 DC PO 12/08 2030 Acetaminophen 1,000 MG TID 12/07 1515 AC 12/08 PO 203 Alvimopan 12 MG BID 12/09 0900 UNVr PO Alvimopan 12 MG BID 12/07 2100 DC 12/08 PO 2143 Atorvastatin Calcium 20 MG 1700 12/07 1700 AC 12/08 PO 1605 Diphenhydramine HCl 50 MG Q6P PRN 12/07 1530 AC IV Gabapentin 200 MG Q8 12/07 1516 AC 12/09 PO 0528 Heparin Sodium 5,000 UNIT Q8 12/07 2200 AC 12/09 (Porcine) SC 0528 Insulin Aspart 0 TIDAC 12/08 0800 AC SC Insulin Aspart 0 AT BEDTIME 12/07 2345 AC SC Morphine Sulfate 2 MG Q3P PRN 12/08 0730 AC IV Ondansetron HCl 4 MG Q6P PRN 12/07 1530 AC IV Oxycodone HCl 5 MG Q4-6 PRN PRN 12/07 1530 AC PO Oxycodone HCl 10 MG Q4-6 PRN PRN 12/07 1530 AC 12/08 PO 2143 Pantoprazole Sodium 40 MG DAILY 12/08 0900 AC 12/08 IV 0858 Patient Medication 1 ED ONE ONE 12/08 1230 DC 12/08 Teaching ED 12/08 1231 1238 Tramadol HCl 50 MG Q6 PRN 12/09 0745 UNVr PO Tramadol HCl 100 MG Q6P PRN 12/09 0745 UNVr PO Zolpidem Tartrate 10 MG AT BEDTIME NEED.. 12/07 1530 AC PO Results Last 48 Hours of Labs: Laboratory Tests 12/08 06 Chemistry Sodium (137 - 145 mmol/L) 138 Potassium (3.5 - 5.1 mmol/L) 4.5 Chloride (98 - 107 mmol/L) 101 Carbon Dioxide (22 - 30 mmol/L) 25 Anion Gap (5 - 16) 12 BUN (9 - 20 mg/dL) 13 Creatinine (0.7 - 1.2 mg/dL) 0.9 Estimated GFR (>60 ml/min) > 60 BUN/Creatinine Ratio (7 - 25 %) 14.4 Hematology CBC w Diff MAN DIFF ORDERED WBC (4.8 - 10.8 /CUMM) 12.8 H RBC (4.70 - 6.10 /CUMM) 4.06 L Hgb (14.0 - 18.0 G/DL) 12.1 L Hct (42 - 52 %) 35.9 L MCV (80.0 - 94.0 FL) 88.4 MCH (27.0 - 31.0 PG) 29.7 MCHC (33.0 - 37.0 G/DL) 33.6 RDW (11.5 - 14.5 %) 15.4 H Plt Count (130 - 400 /CUMM) 269 MPV (7.4 - 10.4 FL) 10.4 Gran % (42.2 - 75.2 %) 85.8 H Lymphocytes % (20.5 - 51.1 %) 7.6 L Monocytes % (1.7 - 9.3 %) 6.5 Eosinophils % (0 - 5 %) 0.1 Basophils % (0.0 - 2.0 %) 0 Absolute Granulocytes (1.4 - 6.5 /CUMM) 11.0 H Segmented Neutrophils (42.2 - 75.2 %) 77 H Band Neutrophils (0.0 - 5.0 %) 7 H Absolute Lymphocytes (1.2 - 3.4 /CUMM) 1.0 L Lymphocytes (20.5 - 51.1 %) 6 L Monocytes (1.7 - 9.3 %) 10 H Absolute Monocytes (0.10 - 0.60 /CUMM) 0.8 H Absolute Eosinophils (0.0 - 0.7 /CUMM) 0 Absolute Basophils (0.0 - 0.2 /CUMM) 0 Platelet Estimate (ADEQUATE) VERIFIED BY SMEAR Anisocytosis 1+ Assessment/Plan Assessment/Plan 52 M s/p ileostomy reversal due to rectal ca, with signs of bowel return and hematochezia, likely postoperative Advance to low residue diet Cont ERAS Entereg until normal BM Monitor H&H, recheck today Keep BUD in place Dvt ppx- hsq and alps ISS on board Encourage IS and ambulation Will d/w Dr. Howe Core Measures Venous Thromboembolism VTE Risk Factors Surgery No Mechanical VTE Prophylaxis d/t N/A MechProphylax Ordered No VTE Pharm Prophylaxis d/t NA PharmProphylax ordered
--- NOTE | 2017-12-09 07:54 | PN- General Surgery ---
Surgical Brief Attending Note Brief Attending Note: Patient reports multiple bloody bowel movements this morning Stool in had dark heme positive AVSS Gen.-No acute distress Abdomen-soft Plan: Stop all anticoagulants Check a CBC Observe in hospital for now
[2017-12-09 08:10] LABS: ABSOLUTE BASOPHIL COUNT 0 /CUMM (0.0-0.2); ABSOLUTE EOSINOPHIL COUNT 0.1 /CUMM (0.0-0.7); ABSOLUTE LYMPH COUNT 1.2 /CUMM (1.2-3.4); ABSOLUTE MONOCYTE COUNT 0.9 /CUMM (0.10-0.60); BASOPHIL % 0.1 % (0.0-2.0); EOSINOPHIL % 1.1 % (0-5); GRANULOCYTE % 78.6 % (42.2-75.2); HEMATOCRIT 36.4 % (42-52); MEAN CORPUSCULAR HGB 30.2 PG (27.0-31.0); MEAN CORPUSCULAR HGB CONC 33.9 G/DL (33.0-37.0); MEAN PLATELET VOLUME 9.4 FL (7.4-10.4); PLATELET COUNT 221 /CUMM (130-400); RBC DISTRIBUTION WIDTH 15.6 % (11.5-14.5); RED BLOOD CELL CT 4.09 /CUMM (4.70-6.10); WHITE BLOOD CELL COUNT 10.1 /CUMM (4.8-10.8)
[2017-12-09 13:56] VITALS: BP 127/90
[2017-12-09 21:05] VITALS: BP 142/90
[2017-12-10 06:59] VITALS: BP 138/92
--- NOTE | 2017-12-10 08:08 | PN- General Surgery ---
Subjective Subjective: POD#3 ILEOSTOMY CLOSURE no major issues overnight had soft brown bm last evening with minimal blood denies cp, sob, no n+v with diet Objective Vital Signs and I&Os Vital Signs Date Time Temp Pulse Resp B/P B/P Pulse O2 O2 Flow FiO2 Mean Ox Delivery Rate 12/10 0659 97.6 73 18 138/92 97 / 2105 98.2 73 16 142/90 96 Room Air 12/09 1356 97.7 86 18 127/90 100 Room Air Intake & Output 12/10 1600 12/10 0800 12/10 0000 12/09 1600 12/09 0800 12/09 0000 Intake Total 720 240 240 Output Total 1100 610 769 4154 1925 Balance -1100 -355 -240 -770 -1685 Intake, IV 0 Intake, Oral 720 240 240 Number 1 1 6 Bowel Movements Output, 5 10 10 Drainage Output, Stool 300 150 200 Output, Urine 800 141 984 5233 1725 Patient 199 lb Weight Physical Exam: cv: rrr' lungs: clear abd: soft less tender wound c/d/i bud: minimal serosang draiange ext: warm, calves soft Assessment/Plan Assessment/Plan surgical stable plan' oob/ambulate likely d/c later today f/u dr myers Core Measures Venous Thromboembolism VTE Risk Factors Surgery No Mechanical VTE Prophylaxis d/t N/A MechProphylax Ordered No VTE Pharm Prophylaxis d/t NA PharmProphylax ordered
[2017-12-10] MEDS ORDERED: OXYCODONE HCL5 M1 PO (09:55)
== END 2017-12-10 10:51 | DRG 331 ==
LOC: SDA 02:02 → ENRESERV 15:48 → ENTRNSPT 16:29 → EDTRNSPTSTS 16:36 → 2NB 16:46 → CMPTRNSPT 16:51 → ENPENDDIS 12-10 10:03 → ENTRNSPT 12-10 10:40 → 2NB 12-10 10:51 → EDTRNSPTSTS 12-10 10:58 → CMPTRNSPT 12-10 11:05
PROVIDERS: Physician Assistant Surgical
PROC: 3E0T3BZ Introduction of Anesthetic Agent into Peripheral Nerves and Plexi, Percutaneous Approach (ICD-10-PCS; principal; 2017-12-07)
PROC: 0DBB0ZZ Excision of Ileum, Open Approach (ICD-10-PCS; principal; 2017-12-07)
DX: Z43.2 Encounter for attention to ileostomy (principal); E11.9 Type 2 diabetes mellitus without complications; Z79.84 Long term (current) use of oral hypoglycemic drugs; I10 Essential (primary) hypertension; E78.5 Hyperlipidemia, unspecified
CPT/HCPCS: 2NBP; 36592; 82436; J0131; J0690; J1644; J7120